=== PATIENT | female | born 1970 | race Caucasian/White ===

== ENCOUNTER 2017-06-13 09:44 | Observation (INO) | payer SELFPAY ==
[2017-06-13] MEDS ORDERED: NORMAL SALINE 1000 ML 1,000 ML IV PRN ×2 (09:56→13:56)
[2017-06-13] MEDS ORDERED: ONDANSETRON HCL INJ/PF 4 MG/2 ML SDV IV ONE (09:57)
[2017-06-13] MEDS ORDERED: MORPHINE SULFATE 10 MG/ML INJ IV ONE (09:57)
--- NOTE | 2017-06-13 09:58 | ER Document Report ---
ED Medical Screen (RME) - General Chief Complaint: Abdominal Pain Stated Complaint: ABDOMINAL PAIN Time Seen by Provider: 06/13/17 09:50 Notes: Patient presents with diffuse abdominal pain. She states she is able to eat and does not have nausea or vomiting. No problems with bowel movement. No problems with urination. She states the pain started yesterday has been increasing. She states it does go to the center of her back. TRAVEL OUTSIDE OF THE [place] IN LAST 30 DAYS: No - Related Data Allergies/Adverse Reactions: acetaminophen [From Percocet] Allergy (Severe, Verified 06/13/17 09:48) Rash on legs codeine [Codeine] Allergy (Severe, Verified 06/13/17 09:48) Over sedation, drooling oxycodone HCl [From Percocet] Allergy (Severe, Verified 06/13/17 09:48) Rash on legs Past Medical History - Past Medical History Cardiac Medical History: Denies: Hx Coronary Artery Disease, Hx Heart Attack, Hx Hypertension Pulmonary Medical History: Denies: Hx Asthma, Hx Bronchitis, Hx COPD, Hx Pneumonia Neurological Medical History: Denies: Hx Cerebrovascular Accident, Hx Seizures Renal/ Medical History: Denies: Hx Peritoneal Dialysis Musculoskeltal Medical History: Denies Hx Arthritis Psychiatric Medical History: Reports: Hx Depression - Immunizations Hx Diphtheria, Pertussis, Tetanus Vaccination: Yes - ? Tetanus only Physical Exam - Vital signs Vitals: Temp Pulse Resp BP Pulse Ox 98.7 F 78 20 124/83 99 06/13/17 09:48 06/13/17 09:48 06/13/17 09:48 06/13/17 09:48 06/13/17 09:48 Course - Vital Signs Vital signs: Temp Pulse Resp BP Pulse Ox 98.7 F 78 20 124/83 99 06/13/17 09:48 06/13/17 09:48 06/13/17 09:48 06/13/17 09:48 06/13/17 09:48
[2017-06-13 10:40] LABS: ABSOLUTE BASOPHILS # (AUTO) 0.1 10^3/uL (0.0-0.2); ABSOLUTE LYMPHOCYTES (AUTO) 1.6 10^3/uL (0.5-4.7); ABSOLUTE MONOCYTES (AUTO) 0.7 10^3/uL (0.1-1.4); ABSOLUTE NEUT (AUTO) 11.4 10^3/uL (1.7-8.2); BASOPHILS % (AUTO) 0.5 % (0-2); EOSINOPHILS % (AUTO) 0.1 % (0-6); HEMATOCRIT 41.2 % (36.0-47.0); HEMOGLOBIN 14.5 g/dL (12.0-15.5); HGB HCT DIFFERENCE 2.3; LYMPHOCYTES % (AUTO) 11.4 % (13-45); MEAN CORPUSCULAR HEMOGLOBIN 31.8 pg (27.0-33.4); MEAN CORPUSCULAR HGB CONC 35.1 g/dL (32.0-36.0); MEAN CORPUSCULAR VOLUME 91 fl (80-97); MONOCYTES % (AUTO) 5.4 % (3-13); RED BLOOD COUNT 4.54 10^6/uL (3.72-5.28); RED CELL DISTRIBUTION WIDTH 12.1 % (11.5-14.0); SEGMENTED NEUTROPHILS % (AUTO) 82.6 % (42-78); WHITE BLOOD COUNT 13.8 10^3/uL (4.0-10.5)
[2017-06-13 10:54] LABS: ALANINE AMINOTRANSFERASE 24 U/L (9-52); ALBUMIN 4.7 g/dL (3.5-5.0); ALKALINE PHOSPHATASE 79 U/L (38-126); ANION GAP 12 (5-19); ASPARTATE AMINO TRANSFERASE 15 U/L (14-36); BILIRUBIN,DIRECT 0.5 mg/dL (0.0-0.4); BLOOD UREA NITROGEN 5 mg/dL (7-20); CALCIUM 10.4 mg/dL (8.4-10.2); CARBON DIOXIDE 26 mmol/L (22-30); CHLORIDE 102 mmol/L (98-107); CREATININE RESULT 0.71 mg/dL (0.52-1.25); GLUCOSE 95 mg/dL (75-110); LIPASE 30.1 U/L (23-300); POTASSIUM 4.1 mmol/L (3.6-5.0); SODIUM 140.2 mmol/L (137-145); TOTAL PROTEIN 8.6 g/dL (6.3-8.2)
[2017-06-13 11:07] LABS: APPEARANCE,URINE CLEAR; BILIRUBIN,URINE NEGATIVE (NEGATIVE); GLUCOSE, URINE NEGATIVE (NEGATIVE); KETONES,URINE NEGATIVE (NEGATIVE); LEUKOCYTE ESTERASE,URINE NEGATIVE (NEGATIVE); NITRITE,URINE NEGATIVE (NEGATIVE); PROTEIN,URINE NEGATIVE (NEGATIVE); URINE SPECIFIC GRAVITY 1.003; UROBILINOGEN,URINE NEGATIVE mg/dL (<2.0)
--- NOTE | 2017-06-13 11:51 | ER Document Report ---
ED GI/ - General Chief Complaint: Abdominal Pain Stated Complaint: ABDOMINAL PAIN Time Seen by Provider: 06/13/17 09:50 Mode of Arrival: Ambulatory Information source: Patient Notes: Patient complains of abdominal pain that started yesterday. Patient states that pain was just generalized abdomen. Patient states she was given pain medication in triage that has greatly helped her symptoms. Patient denies any nausea, vomiting or diarrhea. Patient denies any vaginal bleeding or discharge. Patient denies any urinary symptoms. Patient does report a decreased appetite. No fever or cough. TRAVEL OUTSIDE OF THE [place] IN LAST 30 DAYS: No - HPI Patient complains to provider of: Abdominal pain. No: Diarrhea, Vomiting Onset: Yesterday Timing/Duration: Gradual Quality of pain: Sharp Severity at maximum: Moderate Pain Level: 1 Context: denies: Location: Other - Generalized abdomen Vaginal bleeding (Compared to normal period): None Sexual history: Active Associated symptoms: Loss of appetite. denies: Constipation, Diarrhea, Dysuria , Fever, Nausea, Urinary hesitancy, Urinary frequency, Urinary retention, Urinary urgency, Vaginal discharge, Vomiting Exacerbated by: Movement Relieved by: Denies Similar symptoms previously: No Recently seen / treated by doctor: No - Related Data Allergies/Adverse Reactions: acetaminophen [From Percocet] Allergy (Severe, Verified 06/13/17 09:48) Rash on legs codeine [Codeine] Allergy (Severe, Verified 06/13/17 09:48) Over sedation, drooling oxycodone HCl [From Percocet] Allergy (Severe, Verified 06/13/17 09:48) Rash on legs Home Medications: Current Home Medications No Home Medications 06/13/17 [History] Past Medical History - General Information source: Patient - Social History Smoking Status: Never Smoker Chew tobacco use (# tins/day): No Frequency of alcohol use: None Drug Abuse: None Lives with: Family Family History: Reviewed & Not Pertinent Patient has suicidal ideation: No Patient has homicidal ideation: No - Past Medical History Cardiac Medical History: Denies: Hx Coronary Artery Disease, Hx Heart Attack, Hx Hypertension Pulmonary Medical History: Denies: Hx Asthma, Hx Bronchitis, Hx COPD, Hx Pneumonia Neurological Medical History: Denies: Hx Cerebrovascular Accident, Hx Seizures Renal/ Medical History: Denies: Hx Peritoneal Dialysis Musculoskeltal Medical History: Denies Hx Arthritis Psychiatric Medical History: Reports: Hx Depression Past Surgical History: Reports: Hx Hysterectomy - Immunizations Hx Diphtheria, Pertussis, Tetanus Vaccination: Yes - ? Tetanus only Review of Systems - Review of Systems Constitutional: No symptoms reported. denies: Fever, Recent illness EENT: No symptoms reported Cardiovascular: No symptoms reported. denies: Chest pain Respiratory: No symptoms reported. denies: Cough, Short of breath Gastrointestinal: Abdominal pain, Poor appetite. denies: Diarrhea, Nausea, Vomiting, Constipation Genitourinary: No symptoms reported. denies: Dysuria, Frequency, Flank pain Female Genitourinary: No symptoms reported. denies: Vaginal discharge, Vaginal bleeding Musculoskeletal: No symptoms reported. denies: Back pain Skin: No symptoms reported Hematologic/Lymphatic: No symptoms reported Neurological/Psychological: No symptoms reported Physical Exam - Vital signs Vitals: Temp Pulse Resp BP Pulse Ox 98.7 F 78 20 124/83 99 06/13/17 09:47 06/13/17 09:47 06/13/17 09:47 06/13/17 09:47 06/13/17 09:47 - General General appearance: Appears well, Alert In distress: None - HEENT Head: Normocephalic, Atraumatic Eyes: Normal Nasal: Normal Mouth/Lips: Normal Mucous membranes: Normal Neck: Normal, Supple - Respiratory Respiratory status: No respiratory distress Chest status: Nontender Breath sounds: Normal. No: Rales, Rhonchi, Stridor, Wheezing Chest palpation: Normal - Cardiovascular Rhythm: Regular Heart sounds: S1 appreciated, S2 appreciated Murmur: No - Abdominal Inspection: Obese Distension: No distension Bowel sounds: Normal Tenderness: Tender - RLQ, suprapubic Organomegaly: No organomegaly - Back Back: Normal, Nontender. No: CVA tenderness, Vertebra tenderness - Extremities General upper extremity: Normal inspection, Normal ROM General lower extremity: Normal inspection, Normal ROM - Neurological Neuro grossly intact: Yes Cognition: Normal Heidi Coma Scale Eye Opening: Spontaneous Heidi Coma Scale Verbal: Oriented Heidi Coma Scale Motor: Obeys Commands Heidi Coma Scale Total: 15 - Psychological Associated symptoms: Normal affect, Normal mood - Skin Skin Temperature: Warm Skin Moisture: Dry Skin Color: Normal Course - Re-evaluation Re-evalutation: 06/13/17 11:[address] call [address] surgeon [address] Serna, message left with nurse for return call. Discussed patient's presentation and whether or not surgeon would like to come evaluate patient or if he would want imaging done. 06/13/17 11:54 Nurse called back stating that surgeon prefers that patient have some CT imaging prior to his evaluation. 06/13/17 13:[address] Serna advising him of CT findings of acute appendicitis. Recommend starting patient on cefoxitin and having her admitted to the floor and he will evaluate as soon as he is able. - Vital Signs Vital signs: Temp Pulse Resp BP Pulse Ox 98.2 F 49 L 17 102/74 96 06/13/17 16:20 06/13/17 16:20 06/13/17 16:20 06/13/17 16:20 06/13/17 16:20 - Laboratory Result Diagrams: 06/13/17 10:20 06/13/17 10:20 Laboratory results interpreted by me: 06/13/17 06/13/17 10:20 10:20 WBC 13.8 H Seg Neutrophils % 82.6 H Lymphocytes % 11.4 L Absolute Neutrophils 11.4 H BUN 5 L Calcium 10.4 H Total Bilirubin 2.0 H Direct Bilirubin 0.5 H Total Protein 8.6 H 06/13/17 13:54 Labs- Entire Visit 06/13/17 06/13/17 06/13/17 10:20 10:20 10:20 WBC 13.8 H RBC 4.54 Hgb 14.5 Hct 41.2 MCV 91 MCH 31.8 MCHC 35.1 RDW 12.1 Plt Count 209 Seg Neutrophils % 82.6 H Lymphocytes % 11.4 L Monocytes % 5.4 Eosinophils % 0.1 Basophils % 0.5 Absolute Neutrophils 11.4 H Absolute Lymphocytes 1.6 Absolute Monocytes 0.7 Absolute Eosinophils 0.0 Absolute Basophils 0.1 Sodium 140.2 Potassium 4.1 Chloride 102 Carbon Dioxide 26 Anion Gap 12 BUN 5 L Creatinine 0.71 Est GFR ( Amer) > 60 Est GFR (Non-Af Amer) > 60 Glucose 95 Calcium 10.4 H Total Bilirubin 2.0 H Direct Bilirubin 0.5 H Indirect Bilirubin Not Reportable Neonat Total Bilirubin Not Reportable AST 15 ALT 24 Alkaline Phosphatase 79 Total Protein 8.6 H Albumin 4.7 Lipase 30.1 Urine Color STRAW Urine Appearance CLEAR Urine pH 7.0 Ur Specific Gully 1.003 Urine Protein NEGATIVE Urine Glucose (UA) NEGATIVE Urine Ketones NEGATIVE Urine Blood NEGATIVE Urine Nitrite NEGATIVE Urine Bilirubin NEGATIVE Urine Urobilinogen NEGATIVE Ur Leukocyte Esterase NEGATIVE Urine WBC (Auto) 0 Squamous Epi Cells Auto 1 Urine Ascorbic Acid NEGATIVE Urine HCG, Qual NEGATIVE - Diagnostic Test Radiology reviewed: Reports reviewed Discharge - Discharge Clinical Impression: Abdominal pain Qualifiers: Abdominal location: right lower quadrant Qualified Code(s): R10.31 - Right lower quadrant pain Appendicitis Qualifiers: Appendicitis type: acute appendicitis Acute appendicitis type: unspecified acute appendicitis type Qualified Code(s): K35.80 - Unspecified acute appendicitis Leukocytosis Qualifiers: Leukocytosis type: unspecified Qualified Code(s): D72.829 - Elevated white blood cell count, unspecified Condition: Stable Disposition: ADMITTED INPATIENT Admitting Provider: Surgicalist Unit Admitted: Medical Floor
--- NOTE | 2017-06-13 13:00 | RADIOLOGY REPORT (SQ) ---
EXAM DESCRIPTION: CT ABD/PELVIS WITH IV ONLY COMPLETED DATE/TIME: 06/13/2017 12:27 pm REASON FOR STUDY: suprapubic, RLQ pain COMPARISON: None. TECHNIQUE: CT scan of the abdomen and pelvis performed using helical scanning technique with dynamic intravenous contrast injection. No oral contrast. Images reviewed with lung, soft tissue, and bone windows. Reconstructed coronal and sagittal MPR images reviewed. Delayed images for evaluation of the urinary system also acquired. All images stored on PACS. All CT scanners at this facility use dose modulation, iterative reconstruction, and/or weight based d osing when appropriate to reduce radiation dose to as low as reasonably achievable (ALARA). [facility]: Dose Right [facility]: CareDose [facility]: Dose Right [facility]: Teradose 4D [facility]: Paradine CONTRAST TYPE AND DOSE: contrast/concentration: Isovue 370.00 mg/ml; Total Contrast Delivered: 100.0 ml; Total Saline Delivered: 70.0 ml RENAL FUNCTION: BUN 5 creatinine 0.71. RADIATION DOSE: Up-to-date CT equipment and radiation dose reduction techniques were employed. CTDIv ol: 11.6 - 15.3 mGy. DLP: 1533 mGy-cm.. LIMITATIONS: None. FINDINGS: LOWER CHEST: No significant findings. No nodules or infiltrates. LIVER: Normal size. No masses. No dilated ducts. SPLEEN: Normal size. No focal lesions. PANCREAS: No masses. No significant calcifications. No adjacent inflammation or peripancreatic fluid collections. Pancreatic duct not dilated. GALLBLADDER: No identified stones by CT criteria. No inflammatory changes to suggest cholecystitis. ADRENAL GLANDS: No significant masses or asymmetry. RIGHT KIDNEY AND URETER: No solid masses. No significant calcifications. No hydronephrosis or hyd roureter. LEFT KIDNEY AND URETER: No solid masses. No significant calcifications. No hydronephrosis or hydr oureter. AORTA AND VESSELS: No aneurysm. No dissection. Renal arteries, SMA, celiac without stenosis. RETROPERITONEUM: No retroperitoneal adenopathy, hemorrhage or masses. BOWEL AND PERITONEAL CAVITY: No masses or inflammatory changes. No free fluid or peritoneal masses. APPENDIX: Distended. Inflammatory changes in the periappendiceal tissues. No fluid collections or e xtraluminal gas. PELVIS: No mass. No free fluid. Normal bladder. ABDOMINAL WALL: No masses. No hernias. BONES: No significant or acute findings. OTHER: No other significant finding. IMPRESSION: 1. EARLY ACUTE APPENDICITIS. NO ABSCESS OR PERFORATION AT THIS TIME. 2. NO OTHER SIGNIFICANT OR ACUTE FINDING IN THE ABDOMEN OR PELVIS ON CT SCAN WITH IV CONTRAST. TECHNICAL DOCUMENTATION: JOB ID: [id number] Quality ID # [id number]: Final reports with documentation of one or more dose reduction techniques (e.g., Au tomated exposure control, adjustment of the mA and/or kV according to patient size, use of iterative reconstruction technique) 2010 [email or web address]- All Rights Reserved
[2017-06-13] MEDS ORDERED: CEFOXITIN 1 GM/D5W RTU 1 GM/50 ML RTUPB IV ONE (13:53)
--- NOTE | 2017-06-13 17:44 | PDOC H&P ---
History of Present Illness Admission Date/PCP: 06/13/17 14:07 Patient complains of: Abdominal pain History of Present Illness: TISHA GARCIA is a 47 year old female who presents to [facility] [place] [facility] with acute onset of abdominal pain starting yesterday. With progressive worsening prompted ER visit. ER workup revealed leukocytosis and CT findings suggestive of acute appendicitis. Currently without complaints of fever, chest pain, shortness of breath, headache, nausea, vomiting, diarrhea, dizziness or LOC. Past Medical History Cardiac Medical History: Denies: Coronary Artery Disease, Myocardial Infarction, Hypertension Pulmonary Medical History: Denies: Asthma, Bronchitis, Chronic Obstructive Pulmonary Disease (COPD), Pneumonia Neurological Medical History: Denies: Seizures Musculoskeltal Medical History: Denies: Arthritis Psychiatric Medical History: Reports: Depression Hematology: Denies: Anemia Past Surgical History Past Surgical History: Reports: Hysterectomy, Other - Lumbar surgery, right elbow surgery Social History Smoking Status: Former Smoker Number of Years Smokin Last Time Smoked: 2015 Frequency of Alcohol Use: Rare Hx Recreational Drug Use: No Drugs: None Hx Prescription Drug Abuse: No Family History Family History: Reviewed & Not Pertinent Parental Family History Reviewed: Yes - DM Children Family History Reviewed: Yes Sibling(s) Family History Reviewed.: Yes Medication/Allergy Home Medications: No Home Medications 06/13/17 Allergies/Adverse Reactions: acetaminophen [From Percocet] Allergy (Severe, Verified 06/13/17 09:48) Rash on legs codeine [Codeine] Allergy (Severe, Verified 06/13/17 09:48) Over sedation, drooling oxycodone HCl [From Percocet] Allergy (Severe, Verified 06/13/17 09:48) Rash on legs Review of Systems Constitutional: PRESENT: weakness. ABSENT: fever(s), headache(s), night sweats Eyes: ABSENT: visual disturbances Ears: ABSENT: hearing changes Nose, Mouth, and Throat: PRESENT: headache(s) Cardiovascular: ABSENT: chest pain, dyspnea on exertion Respiratory: ABSENT: cough, dyspnea, hemoptysis Gastrointestinal: PRESENT: nausea. ABSENT: constipation, diarrhea, dysphagia, heartburn, vomiting Neurological: ABSENT: abnormal gait, abnormal speech, confusion, dizziness, focal weakness, syncope Physical Exam Vital Signs: Temp Pulse Resp BP Pulse Ox 98.2 F 49 L 17 102/74 96 06/13/17 16:20 06/13/17 16:20 06/13/17 16:20 06/13/17 16:20 06/13/17 16:20 General appearance: PRESENT: no acute distress Head exam: PRESENT: atraumatic, normocephalic Eye exam: PRESENT: conjunctiva pink Mouth exam: PRESENT: moist, neck supple Neck exam: ABSENT: lymphadenopathy, tenderness, thyromegaly, tracheal deviation Respiratory exam: PRESENT: clear to auscultation manda Cardiovascular exam: PRESENT: RRR Pulses: PRESENT: normal dorsalis pedis pul GI/Abdominal exam: PRESENT: soft, tenderness - RLQ Extremities exam: ABSENT: calf tenderness, tenderness Neurological exam: PRESENT: alert, awake, oriented to person, oriented to place , oriented to time, oriented to situation, CN II-XII grossly intact. ABSENT: motor sensory deficit Results Impressions: Abdomen/Pelvis CT 06/13/17 11:54 IMPRESSION: 1. EARLY ACUTE APPENDICITIS. NO ABSCESS OR PERFORATION AT THIS TIME. 2. NO OTHER SIGNIFICANT OR ACUTE FINDING IN THE ABDOMEN OR PELVIS ON CT SCAN WITH IV CONTRAST. Status: Imported from PACS Assessment & Plan - Diagnosis (1) Appendicitis Qualifiers: Appendicitis type: acute appendicitis Acute appendicitis type: unspecified acute appendicitis type Qualified Code(s): K35.80 - Unspecified acute appendicitis Is this a current diagnosis for this admission?: Yes Plan: CLIQ diet, NPO after midnight IV antibiotics Pain control Pulmonary toilet OR in am for lap appy DVT/GI prophylaxis - Time Time Spent: 30 to 50 Minutes
[2017-06-13] MEDS ORDERED: DEXTROSE 50%-WATER 25 GM/50 ML DISP.SYRIN IV PRN ×2 (17:46)
[2017-06-13] MEDS ORDERED: DEXTROSE 40% GEL 15 GM TUBE PO PRN ×2 (17:46)
[2017-06-13] MEDS ORDERED: GLUCAGON,HUMAN RECOMB 1 MG INJ SUBCUT PRN (17:46)
[2017-06-13] MEDS ORDERED: MORPHINE SULFATE 10 MG/ML INJ IV PRN (17:46)
[2017-06-13] MEDS ORDERED: ONDANSETRON HCL INJ/PF 4 MG/2 ML SDV IV PRN (17:46)
[2017-06-13] MEDS ORDERED: ACETAMINOPHEN 325 MG TABLET PO PRN (17:46)
[2017-06-13] MEDS: CEFOXITIN 1 GM/D5W RTU 1 GM/50 ML RTUPB IV SCH (21:55)
[2017-06-13] MEDS: PANTOPRAZOLE SODIUM 40 MG VIAL IV SCH (21:55)
[2017-06-14 04:36] LABS: ABSOLUTE LYMPHOCYTES (AUTO) 2.4 10^3/uL (0.5-4.7); ABSOLUTE MONOCYTES (AUTO) 0.5 10^3/uL (0.1-1.4); ABSOLUTE NEUT (AUTO) 5.9 10^3/uL (1.7-8.2); BASOPHILS % (AUTO) 0.4 % (0-2); EOSINOPHILS % (AUTO) 0.5 % (0-6); HEMATOCRIT 37.6 % (36.0-47.0); HEMOGLOBIN 13.1 g/dL (12.0-15.5); HGB HCT DIFFERENCE 1.7; LYMPHOCYTES % (AUTO) 26.9 % (13-45); MEAN CORPUSCULAR HEMOGLOBIN 31.6 pg (27.0-33.4); MEAN CORPUSCULAR HGB CONC 34.7 g/dL (32.0-36.0); MEAN CORPUSCULAR VOLUME 91 fl (80-97); MONOCYTES % (AUTO) 5.2 % (3-13); RED BLOOD COUNT 4.14 10^6/uL (3.72-5.28); RED CELL DISTRIBUTION WIDTH 12.3 % (11.5-14.0); WHITE BLOOD COUNT 8.8 10^3/uL (4.0-10.5)
[2017-06-14 04:55] LABS: ANION GAP 10 (5-19); BLOOD UREA NITROGEN 6 mg/dL (7-20); CARBON DIOXIDE 24 mmol/L (22-30); CHLORIDE 106 mmol/L (98-107); CREATININE RESULT 0.64 mg/dL (0.52-1.25); GLUCOSE 94 mg/dL (75-110); SODIUM 139.8 mmol/L (137-145)
[2017-06-14] MEDS ORDERED: RINGERS SOLUTION,LACTATED 1,000 ML IV PRN (05:00)
[2017-06-14] MEDS ORDERED: BUPIVACAINE HCL 0.25 % INJ/PF (2.5 MG/1 ML) 30 ML VIAL ONE (06:55)
[2017-06-14] MEDS ORDERED: LIDOCAINE 1%/EPINEPHRINE INJ 20 ML VIAL ONE (06:55)
[2017-06-14] MEDS ORDERED: MIDAZOLAM 2 MG/2 ML INJ ONE (07:15)
[2017-06-14] MEDS ORDERED: PROPOFOL INJ 200 MG/20 ML VIAL IV ONE (07:16)
[2017-06-14] MEDS ORDERED: ACETAMINOPHEN 100 ML IV ONE (07:16)
[2017-06-14] MEDS ORDERED: FENTANYL CITRATE INJ/PF 250 MCG/5 ML AMPULE ONE (07:16)
[2017-06-14] MEDS ORDERED: CEFOXITIN 1 GM/D5W RTU 1 GM/50 ML RTUPB IV ONE (07:32)
[2017-06-14] MEDS ORDERED: EPHEDRINE SULFATE INJ 50 MG/1 ML AMPULE ONE (07:54)
[2017-06-14] MEDS ORDERED: FENTANYL CITRATE INJ/PF 100 MCG/2 ML AMPUL IV PRN ×3 (07:57)
[2017-06-14] MEDS ORDERED: PROMETHAZINE HCL INJ 25 MG/1 ML VIAL IV PRN ×2 (07:57)
[2017-06-14] MEDS ORDERED: DIPHENHYDRAMINE HCL 50 MG/ML VIAL IV PRN (07:57)
[2017-06-14] MEDS ORDERED: MORPHINE SULFATE 10 MG/ML INJ IV PRN (07:57)
--- NOTE | 2017-06-14 08:47 | Operative Report ---
Operative Report DATE OF SURGERY: 06/14/17 Operative Report: Clinical indication: 47 year old female who presents to [facility] [place] [place] [facility] with acute onset of abdominal pain periumbilical to RLQ. ER workup revealed her to have leukocytosis and CT findings consistent with acute appendicitis. Consent was obtained from the patient explained competitions risks benefits with the procedure including but limited to bleeding infection need for operation to which she accepted. Procedure in detail: Patient is brought to the operative suite prior to anesthetic induction SCDs were placed and functional. After adequate anesthetic induction successful intubation she was sterilely prepped and draped in usual manner. Prior to any incision local was instilled. Local used was 1% lidocaine with epinephrine and quarter percent Marcaine plain mixed 50-50 of which 6 mils were used. Access to her abdomen was Via Doyle technique is a cutdown incision was infra umbilical. Dissection through the subcutaneous tissue to the fascia was done bluntly with visual station of the fascia was then retracted anteriorly and transfixed with stitch. Midline incision was made sharply. Confirmation of entry into the abdomen was done via both visual as well as palpable note. Doyle trocar was inserted pneumoperitoneum of 15 mmHg was established 5 mm 0 endoscope was placed within the abdomen noting no iatrogenic injury subsequent trochars were placed. 5 mm suprapubic and a 5 mm left lower quadrant all under direct visualization no bleeding noted. Patient was placed in steep Trendelenburg and airplane left. Instrumentation was placed into her abdomen to optimize visualization of the appendix which was readily apparent on the anterior surface of the colon. Appendix was retracted anteriorly window was created between the mesoappendix and the base of the appendix transection of both of these structures was accomplished with a WALTER stapler 45 mm blue load for the bowel white load for the mesoappendix. Inspection staple lines after transection notes no bleeding. Cursory inspection of the abdomen notes normal-appearing liver abdominal wall stomach pelvic structures that were visible. At this point trochars removed under direct visualization noting no bleeding pneumoperitoneum was insufflated and has an trocar was removed. Sites were then closed in sequence using a 3-0 Vicryl stitch in the dermis and approximation of the skin using 4-0 chromic in running some particular manner. Additional closure at this time trocar was a figure 8-0 Vicryl stitch in the fascia of the abdominal wall. Skin site dressings were with tincture benzoin Steri-Strips and op sites were 2 x 2's. Patient was awoke from anesthesia successfully extubated and transported back to recovery in stable condition. PREOPERATIVE DIAGNOSIS: Acute appendicitis POSTOPERATIVE DIAGNOSIS: Acute appendicitis OPERATION: Laparoscopic appendectomy SURGEON: NUPUR HERRERA ANESTHESIA: GA TISSUE REMOVED OR ALTERED: Appendix COMPLICATIONS: None ESTIMATED BLOOD LOSS: 5mls INTRAOPERATIVE FINDINGS: Thickened appendix
[2017-06-14] MEDS ORDERED: PROMETHAZINE HCL INJ 25 MG/1 ML VIAL ONE (09:04)
[2017-06-14] MEDS: CEFOXITIN 1 GM/D5W RTU 1 GM/50 ML RTUPB IV SCH (09:51)
[2017-06-14] MEDS: PANTOPRAZOLE SODIUM 40 MG VIAL IV SCH (09:52)
[2017-06-14] MEDS ORDERED: DOCUSATE SODIUM 100 MG CAPSULE PO SCH (10:00)
[2017-06-14] MEDS ORDERED: LIDOCAINE 2% INJ-PF (20 MG/ML) 10 ML AMPUL ONE (10:22)
[2017-06-14] MEDS ORDERED: NEOSTIGMINE METHYLSULFATE 10 MG/10 ML VIAL ONE (10:22)
[2017-06-14] MEDS ORDERED: ONDANSETRON HCL INJ/PF 4 MG/2 ML SDV ONE (10:22)
[2017-06-14] MEDS ORDERED: DEXAMETHASONE SOD PHOSPHATE INJ 4 MG/1 ML VIAL ONE (10:22)
[2017-06-14] MEDS ORDERED: GLYCOPYRROLATE INJ 0.4 MG/2 ML VIAL ONE (10:22)
[2017-06-14] MEDS ORDERED: SUCCINYLCHOLINE CHLORIDE INJ 200 MG/10 ML VIAL ONE (10:22)
--- NOTE | 2017-06-14 15:57 | PDOC DISCHARGE SUMMARY ---
General - Admit/Disc Date/PCP Admission Date/Primary Care Provider: 06/13/17 17:45 Discharge Date: 06/14/17 - Discharge Diagnosis (1) Appendicitis Is this a current diagnosis for this admission?: Yes Summary: Patient underwent appendectomy after ER workup revealed leukocytosis and CT findings c/w acute appendicitis. Pain controlled, tolerating a diet, ambulatory , urinating. - Additional Information Resuscitation Status: Full Code Discharge Diet: As Tolerated Discharge Activity: No Lifting Over 10 Pounds Home Medications: No Home Medications 06/13/17 History of Present Illness Patient complains of: Abdominal pain History of Present Illness: TISHA GARCIA is a 47 year old female who presents to [facility] [place] [facility] with acute onset of abdominal pain starting yesterday. With progressive worsening prompted ER visit. ER workup revealed leukocytosis and CT findings suggestive of acute appendicitis. Currently without complaints of fever, chest pain, shortness of breath, headache, nausea, vomiting, diarrhea, dizziness or LOC. Hospital Course Hospital Course: Postoperative course uneventful, tolerating a diet, pain controlled, urinating and ambulating. Physical Exam Vital Signs: Temp Pulse Resp BP Pulse Ox 97.7 F 81 20 111/67 99 06/14/17 14:10 06/14/17 14:10 06/14/17 14:10 06/14/17 14:10 06/14/17 14:10 Intake & Output 06/13/17 06/14/17 06/15/17 06:59 06:59 06:59 Intake Total 1048 2441 Output Total 205 Balance 1048 2236 Weight 85.6 kg General appearance: PRESENT: no acute distress, well-developed, well-nourished Head exam: PRESENT: atraumatic, normocephalic Mouth exam: PRESENT: moist, neck supple Neck exam: ABSENT: lymphadenopathy, tenderness, thyromegaly, tracheal deviation GI/Abdominal exam: PRESENT: guarding - focal, soft, tenderness - appropriate. ABSENT: distended, firm Extremities exam: PRESENT: full ROM. ABSENT: calf tenderness, clubbing, pedal edema Neurological exam: PRESENT: alert, awake, oriented to person, oriented to place , oriented to time, oriented to situation, CN II-XII grossly intact. ABSENT: motor sensory deficit Results Laboratory Results: 06/14/17 04:28 06/14/17 04:28 06/14/17 06/14/17 04:28 04:28 WBC 8.8 RBC 4.14 Hgb 13.1 Hct 37.6 MCV 91 MCH 31.6 MCHC 34.7 RDW 12.3 Plt Count 182 Seg Neutrophils % 67.0 Lymphocytes % 26.9 Monocytes % 5.2 Eosinophils % 0.5 Basophils % 0.4 Absolute Neutrophils 5.9 Absolute Lymphocytes 2.4 Absolute Monocytes 0.5 Absolute Eosinophils 0.0 Absolute Basophils 0.0 Sodium 139.8 Potassium 4.0 Chloride 106 Carbon Dioxide 24 Anion Gap 10 BUN 6 L Creatinine 0.64 Est GFR ( Amer) > 60 Est GFR (Non-Af Amer) > 60 Glucose 94 Calcium 9.0 Impressions: Abdomen/Pelvis CT 06/13/17 11:54 IMPRESSION: 1. EARLY ACUTE APPENDICITIS. NO ABSCESS OR PERFORATION AT THIS TIME. 2. NO OTHER SIGNIFICANT OR ACUTE FINDING IN THE ABDOMEN OR PELVIS ON CT SCAN WITH IV CONTRAST. Qualifiers PATEINT BEING DISCHARGED WITH ANY OF THE FOLLOWING DIAGNOSIS?: No Plan Discharge Plan: Home Time Spent: Less than 30 Minutes
[2017-06-14 17:34] VITALS: BP 95/56
== END 2017-06-14 18:56 | disposition home or self-care (01) ==
LOC: ER 09:44 → UNDOADMIN 14:07 → EH 14:07 → 4W 16:18 → INTOOBSV 17:45 → 4W 17:45
PROVIDERS: ATTEND Surgery
PROC: 0DTJ4ZZ Resection of Appendix, Percutaneous Endoscopic Approach (ICD-10-PCS; principal; 2017-06-14 07:30)
DX: K35.80 Unspecified acute appendicitis (principal); R51 Headache; Z90.710 Acquired absence of both cervix and uterus; Z87.891 Personal history of nicotine dependence
CPT/HCPCS: 44970; 99285; 96361; 96374; 96375; 36415 ×2; 83690; 85025 ×2; 81025; 80048; 80053; 81001; 88304 ×2; 74177; G0378 ×2; J2250; J1100; J3490 ×3; J3010; J0694 ×2; J2270 ×2; S0164 ×2; J2550; J0330; J2405 ×2; J7030; J7120; J2704; J0131; 840

== ENCOUNTER 2018-10-24 11:39 | Emergency (ER) | payer SELFPAY ==
[2018-10-24] MEDS ORDERED: FENTANYL CITRATE INJ/PF 100 MCG/2 ML AMPUL IV ONE (12:03)
--- NOTE | 2018-10-24 12:09 | ER Document Report ---
ED Medical Screen (RME) - General Chief Complaint: Pain All Over Stated Complaint: PELVIC PAIN, BACK PAIN Time Seen by Provider: 10/24/18 11:56 Mode of Arrival: Ambulatory Information source: Patient Notes: 48-year-old female presents the emergency department with complaints of suprapubic pressure/cramping, dysuria, fever, chills for the last day. Patient denies abnormal vaginal discharge, hematuria, vaginal bleeding. Went to urgent care and urine was normal. Patient states that she has had an appendectomy and hysterectomy in the past. I have greeted and performed a rapid initial assessment of this patient. A comprehensive ED assessment and evaluation of the patient, analysis of test results and completion of the medical decision making process will be conducted by additional ED providers. PHYSICAL EXAMINATION: GENERAL: Well-appearing, well-nourished and in no acute distress. HEAD: Atraumatic, normocephalic. EYES: Pupils equal round extraocular movements intact, conjunctiva are normal. ENT: Nares patent NECK: Normal range of motion LUNGS: No respiratory distress Musculoskeletal: Normal range of motion NEUROLOGICAL: Normal speech, normal gait. PSYCH: Normal mood, normal affect. SKIN: Warm, Dry, normal turgor, no rashes or lesions noted. TRAVEL OUTSIDE OF THE [place] IN LAST 30 DAYS: No - Related Data Allergies/Adverse Reactions: acetaminophen [From Percocet] Allergy (Severe, Verified 10/24/18 11:43) Rash on legs codeine [Codeine] Allergy (Severe, Verified 10/24/18 11:43) Over sedation, drooling oxycodone HCl [From Percocet] Allergy (Severe, Verified 10/24/18 11:43) Rash on legs Past Medical History - Social History Chew tobacco use (# tins/day): No Frequency of alcohol use: None Drug Abuse: None - Past Medical History Cardiac Medical History: Denies: Hx Coronary Artery Disease, Hx Heart Attack, Hx Hypertension Pulmonary Medical History: Denies: Hx Asthma, Hx Bronchitis, Hx COPD, Hx Pneumonia Neurological Medical History: Denies: Hx Cerebrovascular Accident, Hx Seizures Renal/ Medical History: Denies: Hx Peritoneal Dialysis Musculoskeltal Medical History: Denies Hx Arthritis Psychiatric Medical History: Reports: Hx Depression - anxiety Past Surgical History: Reports: Hx Appendectomy, Hx Hysterectomy, Hx Orthopedic Surgery - back, elbow, Hx Tubal Ligation, Other - Lumbar surgery, right elbow surgery - Immunizations Hx Diphtheria, Pertussis, Tetanus Vaccination: Yes - ? Tetanus only History of Influenza Vaccine for 06/2017 - 11/2017 Season: No Physical Exam - Vital signs Vitals: Temp Pulse Resp BP Pulse Ox 99.1 F 83 16 115/75 98 10/24/18 11:49 10/24/18 11:49 10/24/18 11:49 10/24/18 11:49 10/24/18 11:49 Course - Vital Signs Vital signs: Temp Pulse Resp BP Pulse Ox 99.1 F 83 16 115/75 98 10/24/18 11:49 10/24/18 11:49 10/24/18 11:49 10/24/18 11:49 10/24/18 11:49
[2018-10-24 12:46] LABS: ABSOLUTE LYMPHOCYTES (AUTO) 1.6 10^3/uL (0.5-4.7); ABSOLUTE MONOCYTES (AUTO) 0.7 10^3/uL (0.1-1.4); ABSOLUTE NEUT (AUTO) 8.1 10^3/uL (1.7-8.2); BASOPHILS % (AUTO) 0.2 % (0-2); EOSINOPHILS % (AUTO) 0.3 % (0-6); HEMATOCRIT 39.5 % (36.0-47.0); HEMOGLOBIN 13.7 g/dL (12.0-15.5); LYMPHOCYTES % (AUTO) 15.3 % (13-45); MEAN CORPUSCULAR HEMOGLOBIN 31.3 pg (27.0-33.4); MEAN CORPUSCULAR HGB CONC 34.5 g/dL (32.0-36.0); MEAN CORPUSCULAR VOLUME 91 fl (80-97); PLATELET COUNT 223 10^3/uL (150-450); RED BLOOD COUNT 4.37 10^6/uL (3.72-5.28); RED CELL DISTRIBUTION WIDTH 12.3 % (11.5-14.0); SEGMENTED NEUTROPHILS % (AUTO) 77.2 % (42-78); TOTAL CELLS COUNTED % (AUTO) 100 %; WHITE BLOOD COUNT 10.5 10^3/uL (4.0-10.5)
[2018-10-24 12:49] LABS: APPEARANCE,URINE CLEAR; BILIRUBIN,URINE NEGATIVE (NEGATIVE); COLOR,URINE YELLOW; GLUCOSE, URINE NEGATIVE (NEGATIVE); KETONES,URINE NEGATIVE (NEGATIVE); LEUKOCYTE ESTERASE,URINE NEGATIVE (NEGATIVE); NITRITE,URINE NEGATIVE (NEGATIVE); PROTEIN,URINE NEGATIVE (NEGATIVE); URINE SPECIFIC GRAVITY 1.011; UROBILINOGEN,URINE NEGATIVE mg/dL (<2.0)
[2018-10-24 13:05] LABS: ALANINE AMINOTRANSFERASE 23 U/L (9-52); ALBUMIN 4.8 g/dL (3.5-5.0); ALKALINE PHOSPHATASE 75 U/L (38-126); ANION GAP 11 (5-19); ASPARTATE AMINO TRANSFERASE 18 U/L (14-36); BILIRUBIN,DIRECT 0.2 mg/dL (0.0-0.4); BILIRUBIN,TOTAL 1.5 mg/dL (0.2-1.3); BLOOD UREA NITROGEN 14 mg/dL (7-20); CALCIUM 9.8 mg/dL (8.4-10.2); CARBON DIOXIDE 29 mmol/L (22-30); CHLORIDE 99 mmol/L (98-107); GLUCOSE 87 mg/dL (75-110); POTASSIUM 4.3 mmol/L (3.6-5.0); SODIUM 139.4 mmol/L (137-145); TOTAL PROTEIN 8.2 g/dL (6.3-8.2)
--- NOTE | 2018-10-24 13:31 | RADIOLOGY REPORT (SQ) ---
EXAM DESCRIPTION: CT ABD/PELVIS NO ORAL OR IV COMPLETED DATE/TIME: 10/24/2018 1:06 pm REASON FOR STUDY: pelvic pain and numbness COMPARISON: CT abdomen pelvis 06/13/2017 TECHNIQUE: CT scan of the abdomen and pelvis performed without intravenous or oral contrast. Images reviewed with lung, soft tissue, and bone windows. Reconstructed coronal and sagittal MPR images revi ewed. All images stored on PACS. All CT scanners at this facility use dose modulation, iterative reconstruction, and/or weight based d osing when appropriate to reduce radiation dose to as low as reasonably achievable (ALARA). [facility]: Dose Right [facility]: CareDose [facility]: Dose Right [facility]: Teradose 4D [facility]: Smart [employer] RADIATION DOSE: CT Rad equipment meets quality standard of care and radiation dose reduction techniq ues were employed. CTDIvol: 10.9 mGy. DLP: 640 mGy-cm.mGy. LIMITATIONS: None. FINDINGS: Along the proximal sigmoid colon, a 7 cm long segment of wall thickening, luminal narrowin g and surrounding inflammatory changes present, from diverticulitis. This is best shown on axial keshia ges 84 and coronal images 33 through 47. No pericolic abscess. No free pelvic fluid. No bowel obst ruction. Remainder of the uncontrasted images of the gastrointestinal tract are otherwise unremarkable aside f rom post appendectomy change. LOWER CHEST: No significant findings. No nodules or infiltrates. NON-CONTRASTED LIVER, SPLEEN, ADRENALS: Evaluation limited by lack of IV contrast. No identified sign ificant masses. Benign 2 cm left lobe liver cyst at the falciform ligament PANCREAS: No masses. No peripancreatic inflammatory changes. GALLBLADDER: No identified stones by CT criteria. No inflammatory changes to suggest cholecystitis. RIGHT KIDNEY AND URETER: No suspicious masses. Assessment limited by lack of IV contrast. No signif icant calcifications. No hydronephrosis or hydroureter. LEFT KIDNEY AND URETER: No suspicious masses. Assessment limited by lack of IV contrast. No signifi cant calcifications. No hydronephrosis or hydroureter. AORTA AND RETROPERITONEUM: No aneurysm. No retroperitoneal masses or adenopathy. BOWEL AND PERITONEAL CAVITY: As above APPENDIX: Surgically absent PELVIS, BLADDER, AND ABDOMINAL WALL:Post hysterectomy. No free pelvic fluid or pelvic adenopathy. B ladder unremarkable. Tiny fat containing supraumbilical midline ventral hernia containing fat on sag ittal image 63 BONES: Advanced degenerative disc changes at L4-5 OTHER: No other significant finding. IMPRESSION: Proximal sigmoid colon diverticulitis without abscess COMMENT: Quality ID # [id number]: Final reports with documentation of one or more dose reduction techniques (e.g., Automated exposure control, adjustment of the mA and/or kV according to patient size, use of iterative reconstruction technique) TECHNICAL DOCUMENTATION: JOB ID: [id number] [employer]- All Rights Reserved Reading location - IP/workstation name: [email or web address]
--- NOTE | 2018-10-24 13:44 | ER Document Report ---
ED General Pain - General Chief Complaint: Pain All Over Stated Complaint: PELVIC PAIN, BACK PAIN Time Seen by Provider: 10/24/18 11:56 Mode of Arrival: Ambulatory Notes: 48-year-old female presents the emergency department with complaints of suprapubic pressure/cramping, dysuria, fever, chills for the last day. Patient denies abnormal vaginal discharge, hematuria, vaginal bleeding. Went to urgent care and urine was normal. Patient states that she has had an appendectomy and hysterectomy in the past. The patient has a history of chronic back pain and had surgery in 2010. She complains of increasing numbness in her lower extremities. States at times her legs feel weak. She also in the same breath complains of pelvic pain. She has some lower abdominal cramping and dysuria. The patient is supposed to be seeing pain management but cannot afford it. She denies any headache or blurred vision. Complains of severe pain in her lower back which is been chronic but stating the pain is worse and she has been having worse numbness and tingling in her lower extremities. TRAVEL OUTSIDE OF THE [place] IN LAST 30 DAYS: No - Related Data Allergies/Adverse Reactions: acetaminophen [From Percocet] Allergy (Severe, Verified 10/24/18 11:43) Rash on legs codeine [Codeine] Allergy (Severe, Verified 10/24/18 11:43) Over sedation, drooling oxycodone HCl [From Percocet] Allergy (Severe, Verified 10/24/18 11:43) Rash on legs Past Medical History - General Information source: Patient - Social History Smoking Status: Former Smoker Chew tobacco use (# tins/day): No Frequency of alcohol use: None Drug Abuse: None Family History: Reviewed & Not Pertinent Patient has suicidal ideation: No Patient has homicidal ideation: No - Past Medical History Cardiac Medical History: Denies: Hx Coronary Artery Disease, Hx Heart Attack, Hx Hypertension Pulmonary Medical History: Denies: Hx Asthma, Hx Bronchitis, Hx COPD, Hx Pneumonia Neurological Medical History: Denies: Hx Cerebrovascular Accident, Hx Seizures Renal/ Medical History: Denies: Hx Peritoneal Dialysis Musculoskeletal Medical History: Denies Hx Arthritis Psychiatric Medical History: Reports: Hx Depression - anxiety Past Surgical History: Reports: Hx Appendectomy, Hx Hysterectomy, Hx Orthopedic Surgery - back, elbow, Hx Tubal Ligation, Other - Lumbar surgery, right elbow surgery - Immunizations Hx Diphtheria, Pertussis, Tetanus Vaccination: Yes - ? Tetanus only Review of Systems - Review of Systems Gastrointestinal: Abdominal pain, Nausea, Constipation. denies: Diarrhea Genitourinary: Dysuria Musculoskeletal: Back pain -: Yes All other systems reviewed and negative Physical Exam - Vital signs Vitals: Temp Pulse Resp BP Pulse Ox 99.1 F 83 16 115/75 98 10/24/18 11:49 10/24/18 11:49 10/24/18 11:49 10/24/18 11:49 10/24/18 11:49 - Notes Notes: GENERAL_APPEARANCE: well_nourished, alert, cooperative, no_acute_distress, no_obvious_discomfort. VITALS: reviewed, see vital signs table. HEAD: no_swelling\tenderness on the head. EYES: PERRL, EOMI, conjunctiva_clear. NOSE: no_nasal_discharge. MOUTH: (-)decreased moisture. THROAT: no_tonsilar_inflammation, no_airway_obstruction. no_lymphadenopathy NECK: supple, no_neck_tenderness, (-)thyromegaly. BACK: L3-4-5 S1_back_tenderness. CHEST_WALL: no_chest_tenderness. LUNGS: no_wheezing, no_rales, no_rhonchi, (-)accessory muscle use, good air exchange bilateral. HEART: normal_rate, normal_rhythm, normal_S1, normal_S2, (-)S3, (-)S4, no_murmur, no_rub. ABDOMEN: normal_BS, soft, no_abd_tenderness, (-)guarding, (-)rebound, no_organomegaly, no_abd_masses. EXTREMITIES: good pulses in all_extremities, no_swelling\tenderness in the extremities, no_edema. SKIN: warm, dry, good_color, no_rash. MENTAL_STATUS: speech_clear, oriented_X_3, normal_affect, res ponds_appropriately to questions. NEURO: Neg Motor Deficits on exam, foot drop, CN 2-12 intact, DTR 2+ symmetric x 4, No cerbellar signs, patient complains of subjective numbness from the inguinal ligament all the way down to the toes. Does not seem to follow any specific dermatome. Course - Re-evaluation Re-evalutation: 10/24/18 13:43 48-year-old female presents with increasing low back pain pelvic pain cramping some dysuria. We will check a urine. Patient insists that her back pain is worse and she is had numbness and worsening numbness and tingling. We will get an MRI of the lumbar spine to assess to rule out cauda equina syndrome. 10/24/18 15:41 Patient's MRI shows multiple chronic changes but nothing suggestive of spinal cord compression or cauda equina syndrome. There is some effacement of the thecal sac but no compression. The patient CT of abdomen and pelvis does show diverticulitis. Due to the patient's chronic back pain and pain issues this seemed to create a confusing clinical picture where is the abdominal pain was not clearly differentiated. I do not believe the patient has cauda equina syndrome believe she has her chronic back pain. However she did not know how to interpret the new pain in her abdomen The patient was given a dose of Cipro IV here with Flagyl. She will be placed o n Cipro Flagyl [place] and Zofran for home for pain. There is no signs of any abscess or perforation. Patient will be has follow-up with her family doctor for further care she would like any GI consultation once her flare has resolved. - Vital Signs Vital signs: Temp Pulse Resp BP Pulse Ox 99.1 F 83 16 103/67 98 10/24/18 11:49 10/24/18 11:49 10/24/18 11:49 10/24/18 12:52 10/24/18 11:49 - Laboratory Result Diagrams: 10/24/18 12:19 10/24/18 12:19 Laboratory results interpreted by me: 10/24/18 12:19 Total Bilirubin 1.5 H - Diagnostic Test Radiology reviewed: Image reviewed, Reports reviewed Radiology results interpreted by me: 10/24/18 15:42 Abdomen/Pelvis CT 10/24/18 12:50 IMPRESSION: Proximal sigmoid colon diverticulitis without abscess Lumbar Spine MRI 10/24/18 12:50 IMPRESSION: Remote prior left micro laminectomy at L4-5 with a chronic calcified left paracentral disc protrusion flattening the thecal sac near the takeoff of the left proximal L5 nerve root in the lateral recess. Discharge - Discharge Clinical Impression: Acute exacerbation of chronic low back pain Diverticulitis large intestine Qualifiers: Diverticulitis bleeding: without bleeding Diverticulitis complication: without perforation or abscess Qualified Code(s): K57.32 - Diverticulitis of large intestine without perforation or abscess without bleeding Condition: Good Disposition: HOME, SELF-CARE Instructions: Diverticulitis ([facility]), Ciprofloxacin ([facility]), Low Residue Diet ([facility]) Additional Instructions: Please follow-up with your family doctor you will likely need gastroenterology referral once her diverticulitis flare resolves if you develop a fever of 101 or above or if you feel worse or are vomiting and cannot keep down her meds return to the ER please Prescriptions: Tramadol HCl [Ultram 50 mg Tablet] 50 mg PO Q6HP PRN #40 tablet PRN Reason: Ciprofloxacin HCl [Cipro 500 mg Tablet] 500 mg PO BID #20 tablet Metronidazole [Flagyl 500 mg Tablet] 500 mg PO Q8H #30 tablet Ondansetron [Zofran Odt 4 mg Tablet] 1 - 2 tab PO Q4H PRN #15 tab.rapdis PRN Reason: For Nausea/Vomiting
--- NOTE | 2018-10-24 13:56 | EKG REPORT ---
SEVERITY:- BORDERLINE ECG - SINUS RHYTHM BORDERLINE T ABNORMALITIES, INFERIOR LEADS : Confirmed by: Steve Santiago MD 24-Oct-2018 13:56:07
--- NOTE | 2018-10-24 14:08 | RADIOLOGY REPORT (SQ) ---
EXAM DESCRIPTION: MRI LUMBAR SPINE WITHOUT COMPLETED DATE/TIME: 10/24/2018 1:41 pm REASON FOR STUDY: leg numbness COMPARISON: CT abdomen pelvis 10/24/2018 TECHNIQUE: Sagittal and Axial imaging includes T1, T2, STIR and gradient echo sequences. Coronal T2/ HASTE imaging. LIMITATIONS: None. FINDINGS: VISUALIZED UPPER ABDOMEN: Limited evaluation. No acute or suspicious findings suggested. SEGMENTATION: No transitional anatomy. The lowest well-developed disc space is labeled L5-S1. ALIGNMENT: Anatomic. VERTEBRAE: Intact. BONE MARROW: Sclerotic vertebral body endplate changes at L4-5. DISC SIGNAL: High-grade disc space loss of height at L4-5. Mild disc space loss of height with decre ased T2 weighted intervertebral disc signal at L3-4 and L5-S1 POSTERIOR ELEMENTS: Generally intact. No pars defect evident. HARDWARE: None in the spine. CORD AND CONUS: Normal in size and signal intensity. Conus at the L1-2 level. SOFT TISSUES: No aortic aneurysm seen. No bulky retroperitoneal adenopathy or mass. No paraspinal mas s or fluid. T10-11: Mild bilateral facet hypertrophy. No central or foraminal stenosis T11-12: Mild bilateral facet hypertrophy. No central or foraminal stenosis T12-L1: Mild bilateral facet hypertrophy. No central or foraminal stenosis L1-L2: Mild bilateral facet hypertrophy. No central or foraminal stenosis L2-L3: Mild bilateral facet hypertrophy. No central or foraminal stenosis L3-L4: Mild diffuse posterior disc bulging is present with moderate bilateral facet and ligament hype rtrophy. Borderline central canal narrowing. Mild bilateral inferior foraminal narrowing without ex it nerve root impingement. L4-L5: Old left micro laminectomy defect. A calcified left paracentral/ proximal foraminal disc prot rusion is present, partially filling the left lateral recess containing the proximal left L5 nerve ro ot. These changes are best shown on axial T2 series 6 images 22-24. The left paracentral calcified disc protrusion is also seen on CT today, axial image 63/105. Elsewhere at L4-5 there is no central stenosis. Moderate bilateral foraminal narrowing is present wi thout exiting L4 nerve root impingement. L5-S1: Bilateral facet arthropathy. No central stenosis. Mild right, mild to moderate left foramina l narrowing without exit L5 nerve root impingement SACRUM: Visualized upper sacrum intact. OTHER: No other significant findings. IMPRESSION: Remote prior left micro laminectomy at L4-5 with a chronic calcified left paracentral di sc protrusion flattening the thecal sac near the takeoff of the left proximal L5 nerve root in the la teral recess. TECHNICAL DOCUMENTATION: JOB ID: [id number] [employer]- All Rights Reserved Reading location - IP/workstation name: [email or web address]
[2018-10-24] MEDS ORDERED: CIPROFLOXACIN 400 MG/D5W RTU 400 MG/200 ML RTUPB IV ONE (15:34)
[2018-10-24] MEDS ORDERED: METRONIDAZOLE 500 MG TABLET PO ONE (15:34)
[2018-10-24 16:35] VITALS: BP 112/81
== END 2018-10-24 17:14 | disposition home or self-care (01) ==
LOC: ER 11:39
DX: K57.32 Diverticulitis of large intestine without perforation or abscess without bleeding (principal); G89.29 Other chronic pain; M54.5 Low back pain; M79.10 Myalgia, unspecified site; R10.2 Pelvic and perineal pain; R30.0 Dysuria; Z88.6 Allergy status to analgesic agent; Z90.710 Acquired absence of both cervix and uterus
CPT/HCPCS: 93005; 99284; 96375; 96365; 36415; 82962; 85025; 80053; 81001; 72148; 74176; 93010; J3010; J0744

== ENCOUNTER → 2018-12-24 | Outpatient (CLI) | payer OTHER ==
--- NOTE | 2018-12-24 16:50 | RADIOLOGY REPORT (SQ) ---
EXAM DESCRIPTION: FOOT RIGHT 2 VIEWS COMPLETED DATE/TIME: 12/24/2018 4:12 pm REASON FOR STUDY: PAIN IN RT FOOT; CHRONIC RT FOOT PAIN M79.671 PAIN IN RIGHT FOOT No known injury, right foot pain for 6 months COMPARISON: None. NUMBER OF VIEWS: Three views. TECHNIQUE: AP, lateral and oblique radiographic images acquired of the right foot. LIMITATIONS: None. FINDINGS: MINERALIZATION: Normal. BONES: No acute fracture or dislocation. No worrisome bone lesions. JOINTS: Mild joint space narrowing at the 1st metatarsophalangeal joint. No bulky bony spurring or a ggressive bony erosions. SOFT TISSUES: No soft tissue swelling. No foreign body. OTHER: No other significant finding. IMPRESSION: Mild 1st metatarsophalangeal joint space narrowing. TECHNICAL DOCUMENTATION: JOB ID: [id number] [employer]- All Rights Reserved Reading location - IP/workstation name: [email or web address]
== END ==
LOC: OD 15:57
DX: M79.671 Pain in right foot (principal)

== ENCOUNTER → 2019-01-15 | Outpatient (CLI) | payer OTHER ==
--- NOTE | 2019-01-15 13:37 | WOMENS IMAGING REPORT ---
EXAM DESCRIPTION: BRENTON STEPHENS BILATERAL SCREEN COMPLETED DATE/TIME: 01/15/2019 11:31 am REASON FOR STUDY: Z12.31 ENCOUNTER FOR SCREENING MAMMOGRAM FOR MALIGNANT NEOPLASM OF [id number] E NCNTR SCREEN MAMMOGRAM FOR MALIGNANT NEOPLASM OF [place] COMPARISON: None. TECHNIQUE: Standard craniocaudal and mediolateral oblique views of each breast recorded using THUBITa l acquisition. LIMITATIONS: None. FINDINGS: RIGHT BREAST MASSES: Small round circumscribed nodule in the superior breast, located 6 to 7 cm from the nipple. CALCIFICATIONS: No new or suspicious calcifications. ARCHITECTURAL DISTORTION: None. DEVELOPING DENSITY: None. ASYMMETRY: None noted. OTHER: No other significant findings. LEFT BREAST MASSES: No suspicious masses. CALCIFICATIONS: No new or suspicious calcifications. ARCHITECTURAL DISTORTION: None. DEVELOPING DENSITY: None. ASYMMETRY: None noted. OTHER: No other significant findings. Read with the assistance of CAD. .[facility] - R2 Cenova Version 1.3 .[facility] - R2 Cenova Version 1.3 .[facility] - R2 Cenova Version 2.4 .[facility] - R2 Cenova Version 2.4 .[facility] - R2 Athletic Coordinator Version 9.2 IMPRESSION: Small round circumscribed nodule in the superior right breast, possibly a cyst. No worr isome mammographic findings in the left breast. BREAST DENSITY: b. There are scattered areas of fibroglandular density. BIRAD: 0 Incomplete: Needs Additional Imaging Evaluation and/or prior Mammograms for Comparison. RECOMMENDATION: RECOMMENDED FOLLOW-UP: Recommend additional evaluation with ultrasound of the right breast. Recommend routine screening mammography of the left breast. The patient will be contacted for additional imaging. COMMENT: The patient has been notified of the results by letter per [place] requirements. Additional no tification policies are in place for contacting patient with suspicious or incomplete findings. Quality ID #[id number]: The [employer] recommends an annual screening mammogram for women aged 40 years or over. This facility utilizes a reminder system to ensure that all patients receive reminder letters, and/or direct phone calls for appointments. This includes reminders for routine scr eening mammograms, diagnostic mammograms, or other Breast Imaging Interventions when appropriate. Th is patient will be placed in the appropriate reminder system. The [employer] (ACR) has developed recommendations for screening MRI of the breast s in certain patient populations, to be used in conjunction with mammography. Breast MRI surveillanc e may be appropriate for women with more than 20% lifetime risk of developing breast cancer as deter mined by genetic testing, significant family history of the disease, or history of mantle radiation f or Hodgkins Disease. ACR Practice Guidelines 2008. TECHNICAL DOCUMENTATION: FINDING NUMBER: (1) ASSESSMENT: (1) JOB ID: [id number] [employer]- All Rights Reserved Reading location - IP/workstation name: [email or web address]
== END ==
LOC: WI 11:12
DX: Z12.31 Encounter for screening mammogram for malignant neoplasm of breast (principal)
CPT/HCPCS: 77067

== ENCOUNTER 2019-02-07 16:15 | Emergency (ER) | payer OTHER ==
--- NOTE | 2019-02-07 16:47 | ER Document Report ---
ED Medical Screen (RME) - General Chief Complaint: Rectal Bleeding Stated Complaint: ABDOMINAL PAIN Time Seen by Provider: 02/07/19 16:37 Primary [facility] Provider: [facility] [Primary Care Provider] - Follow up as needed Mode of Arrival: Ambulatory Information source: Patient Notes: Patient is a 48-year-old female with history of colitis presenting with what she believes is a colitis flareup. Patient reports rectal drainage and rectal bleeding. She also reports low abdominal cramping with cold sweats. She reports nausea but denies fever or vomiting. Exam: Abd soft, mild TTP. I have greeted and performed a rapid initial assessment of this patient. A comprehensive ED assessment and evaluation of the patient, analysis of test results and completion of the medical decision making process will be conducted by additional ED providers. Dictation of this chart was performed using voice recognition software; therefore, there may be some unintended grammatical errors. TRAVEL OUTSIDE OF THE [place] IN LAST 30 DAYS: No - Related Data Allergies/Adverse Reactions: codeine [Codeine] Allergy (Severe, Verified 02/07/19 16:17) Over sedation, drooling oxycodone HCl [From Percocet] Allergy (Severe, Verified 02/07/19 16:17) Rash on legs Past Medical History - Past Medical History Cardiac Medical History: Denies: Hx Coronary Artery Disease, Hx Heart Attack, Hx Hypertension Pulmonary Medical History: Denies: Hx Asthma, Hx Bronchitis, Hx COPD, Hx Pneumonia Neurological Medical History: Denies: Hx Cerebrovascular Accident, Hx Seizures Renal/ Medical History: Denies: Hx Peritoneal Dialysis Musculoskeltal Medical History: Denies Hx Arthritis Psychiatric Medical History: Reports: Hx Depression - anxiety Past Surgical History: Reports: Hx Appendectomy, Hx Hysterectomy, Hx Orthopedic Surgery - back, elbow, Hx Tubal Ligation, Other - Lumbar surgery, right elbow surgery - Immunizations Hx Diphtheria, Pertussis, Tetanus Vaccination: Yes - ? Tetanus only History of Influenza Vaccine for 06/2017 - 11/2017 Season: No Physical Exam - Vital signs Vitals: Temp Pulse Resp BP Pulse Ox 97.7 F 80 18 125/82 98 02/07/19 16:20 02/07/19 16:20 02/07/19 16:20 02/07/19 16:20 02/07/19 16:20 Course - Vital Signs Vital signs: Temp Pulse Resp BP Pulse Ox 97.7 F 80 18 125/82 98 02/07/19 16:20 02/07/19 16:20 02/07/19 16:20 02/07/19 16:20 02/07/19 16:20 Doctor's Discharge - Discharge Referrals: [facility] [Primary Care Provider] - Follow up as needed
[2019-02-07] MEDS ORDERED: ONDANSETRON HCL INJ/PF 4 MG/2 ML SDV IV ONE (16:49)
[2019-02-07] MEDS ORDERED: NORMAL SALINE 1000 ML 1,000 ML IV ONE (16:49)
[2019-02-07 17:41] LABS: APPEARANCE,URINE CLEAR; BILIRUBIN,URINE NEGATIVE (NEGATIVE); COLOR,URINE YELLOW; GLUCOSE, URINE NEGATIVE (NEGATIVE); KETONES,URINE NEGATIVE (NEGATIVE); LEUKOCYTE ESTERASE,URINE NEGATIVE (NEGATIVE); NITRITE,URINE NEGATIVE (NEGATIVE); PROTEIN,URINE NEGATIVE (NEGATIVE); URINE SPECIFIC GRAVITY 1.021; UROBILINOGEN,URINE NEGATIVE mg/dL (<2.0)
[2019-02-07 17:57] LABS: ALANINE AMINOTRANSFERASE 25 U/L (9-52); ALBUMIN 4.5 g/dL (3.5-5.0); ALKALINE PHOSPHATASE 71 U/L (38-126); ANION GAP 12 (5-19); ASPARTATE AMINO TRANSFERASE 25 U/L (14-36); BILIRUBIN,DIRECT 0.2 mg/dL (0.0-0.4); BILIRUBIN,TOTAL 1.1 mg/dL (0.2-1.3); BLOOD UREA NITROGEN 16 mg/dL (7-20); CALCIUM 9.9 mg/dL (8.4-10.2); CARBON DIOXIDE 28 mmol/L (22-30); CHLORIDE 101 mmol/L (98-107); GLUCOSE 97 mg/dL (75-110); LIPASE 121.5 U/L (23-300); POTASSIUM 4.3 mmol/L (3.6-5.0); SODIUM 141.4 mmol/L (137-145); TOTAL PROTEIN 8.3 g/dL (6.3-8.2)
[2019-02-07 18:52] LABS: HEMATOCRIT 36.6 % (36.0-47.0); HEMOGLOBIN 12.4 g/dL (12.0-15.5); MEAN CORPUSCULAR HEMOGLOBIN 32.2 pg (27.0-33.4); MEAN CORPUSCULAR VOLUME 95 fl (80-97); PLATELET COUNT 330 10^3/uL (150-450); RED BLOOD COUNT 3.86 10^6/uL (3.72-5.28); RED CELL DISTRIBUTION WIDTH 13.3 % (11.5-14.0); WHITE BLOOD COUNT 5.8 10^3/uL (4.0-10.5)
[2019-02-07 19:10] LABS: ABSOLUTE LYMPHOCYTES# (MANUAL) 1.1 10^3/uL (0.5-4.7); ABSOLUTE MONOCYTES # (MANUAL) 0.5 10^3/uL (0.1-1.4); ABSOLUTE NEUTROPHILS# (MANUAL) 4.2 10^3/uL (1.7-8.2); BAND NEUTROPHILS % (MANUAL) 3 % (3-5); BASOPHILS % (MANUAL) 0 % (0-2); EOSINOPHILS % (MANUAL) 0 % (0-6); LYMPHOCYTES % (MANUAL) 15 % (13-45); METAMYELOCYTES % (MANUAL) 1 % (0); MONOCYTES % (MANUAL) 9 % (3-13); PLATELET COMMENT ADEQUATE; SEGMENTED NEUTROPHILS % (MAN) 68 % (42-78); TOTAL CELLS COUNTED 100
[2019-02-07 19:13] LABS: POLYCHROMASIA SLIGHT
--- NOTE | 2019-02-07 19:55 | ER Document Report ---
ED General - General Chief Complaint: Rectal Bleeding Stated Complaint: ABDOMINAL PAIN Time Seen by Provider: 02/07/19 16:37 Primary Care Provider: [facility] [Primary Care Provider] - Follow up as needed BRAVO ROBERTSON MD [ACTIVE STAFF] - Follow up as needed (This is the number the GI doctor) Mode of Arrival: Ambulatory Information source: Patient Notes: This is a 48-year-old female with a history of sigmoid diverticulitis who presents to the emergency room with some rectal drainage, some bleeding while wiping her anus, chills, some lower abdominal discomfort. Patient denies any nausea or vomiting. She has been eating fine (she ate [employer] for lunch this afternoon). She was under the impression that she has had ulcerative colitis in the past and she was concerned she was getting an exacerbation. TRAVEL OUTSIDE OF THE [place] IN LAST 30 DAYS: No - HPI Onset: Last week Onset/Duration: Gradual Quality of pain: Dull Severity: Moderate Pain Level: 2 Associated symptoms: denies: Chest pain, Fever, Shortness of breath Exacerbated by: Denies Relieved by: Denies Similar symptoms previously: Yes Recently seen / treated by doctor: No - Related Data Allergies/Adverse Reactions: codeine [Codeine] Allergy (Severe, Verified 02/07/19 16:17) Over sedation, drooling oxycodone HCl [From Percocet] Allergy (Severe, Verified 02/07/19 16:17) Rash on legs Past Medical History - General Information source: Patient - Social History Smoking Status: Never Smoker Cigarette use (# per day): No Chew tobacco use (# tins/day): No Frequency of alcohol use: None Drug Abuse: None Lives with: Family Family History: Reviewed & Not Pertinent Patient has suicidal ideation: No Patient has homicidal ideation: No - Past Medical History Cardiac Medical History: Denies: Hx Coronary Artery Disease, Hx Heart Attack, Hx Hypertension Pulmonary Medical History: Denies: Hx Asthma, Hx Bronchitis, Hx COPD, Hx Pneumonia Neurological Medical History: Denies: Hx Cerebrovascular Accident, Hx Seizures Renal/ Medical History: Denies: Hx Peritoneal Dialysis Malignancy Medical History: Reports: None GI Medical History: Reports: Hx Diverticulitis Musculoskeletal Medical History: Denies Hx Arthritis Psychiatric Medical History: Reports: Hx Depression - anxiety Traumatic Medical History: Reports: None Infectious Medical History: Reports: None Past Surgical History: Reports: Hx Appendectomy, Hx Hysterectomy, Hx Orthopedic Surgery - back, elbow, Hx Tubal Ligation, Other - Lumbar surgery, right elbow surgery - Immunizations Hx Diphtheria, Pertussis, Tetanus Vaccination: Yes - ? Tetanus only Review of Systems - Review of Systems Constitutional: denies: Chills, Fever EENT: No symptoms reported Cardiovascular: No symptoms reported Respiratory: No symptoms reported Gastrointestinal: See HPI Genitourinary: No symptoms reported Female Genitourinary: No symptoms reported Musculoskeletal: No symptoms reported Skin: No symptoms reported Hematologic/Lymphatic: No symptoms reported Neurological/Psychological: No symptoms reported Physical Exam - Vital signs Vitals: Temp Pulse Resp BP Pulse Ox 97.7 F 80 18 125/82 98 02/07/19 16:20 02/07/19 16:20 02/07/19 16:20 02/07/19 16:20 02/07/19 16:20 Notes: Physical exam: GENERAL: Patient is alert and oriented x3, no acute distress HEAD: Atraumatic, normocephalic. EYES: Pupils equal round and reactive to light, extraocular movements intact, sclera anicteric, conjunctiva are normal. ENT: TMs normal, nares patent, oropharynx clear without exudates. Moist mucous membranes. NECK: Normal range of motion, supple without obvious mass or JVD. LUNGS: Breath sounds clear to auscultation bilaterally and equal. No wheezes rales or rhonchi. HEART: Regular rate and rhythm without murmurs, rubs or gallops. ABDOMEN: Soft, normoactive bowel sounds. No tenderness to palpation. No guarding, no rebound. No masses appreciated. Rectal: Patient does have a hemorrhoid which appears irritated with little blood on it. There is no fistulas. Stool is brown. There is no masses on rectal exam. EXTREMITIES: Normal range of motion, no pitting or edema. No clubbing or cyanosis. NEUROLOGICAL: Cranial nerves II through XII grossly intact. Normal speech, moving all extremities. PSYCH: Normal mood, normal affect. SKIN: Warm, Dry, normal turgor, no rashes or lesions noted. Course - Vital Signs Vital signs: Temp Pulse Resp BP Pulse Ox 97.5 F 51 L 17 104/68 100 02/07/19 22:13 02/07/19 22:13 02/07/19 22:13 02/07/19 22:13 02/07/19 22:13 - Laboratory Result Diagrams: 02/07/19 18:00 02/07/19 17:19 Laboratory results interpreted by me: 02/07/19 02/07/19 17:19 18:00 Metamyelocytes % 1 H Total Protein 8.3 H Discharge - Discharge Clinical Impression: Diverticulitis Condition: Stable Disposition: HOME, SELF-CARE Instructions: Diverticulitis ([facility]) Additional Instructions: Recommendations: Rest, drink plenty fluids, take the antibiotics as prescribed. I would also take Divehi yogurt or probiotics twice daily: You can start now while you taking the antibiotics. Probiotics have been known to be protective of your gut and good for your immune system. Take the Proctofoam for the irritation of the rectum. [facility] Ultimately, he should have follow-up with a GI doctor given these GI issues that you are having: I put the number of a GI doctor affiliated with the hospital. To the ER for worsening pain, fever, vomiting or any concerns or getting worse. Prescriptions: Ciprofloxacin HCl [Cipro 500 mg Tablet] 500 mg PO BID #20 tablet Hydrocortisone/Pramoxine [Proctofoam-Hc Foam] 10 gm RC DAILY #4 foam Metronidazole [Flagyl 500 mg Tablet] 500 mg PO TID #30 tablet Referrals: [facility] [Primary Care Provider] - Follow up as needed BRAVO ROBERTSON MD [ACTIVE STAFF] - Follow up as needed (This is the number the GI doctor)
[2019-02-07 22:15] VITALS: BP 104/68
== END 2019-02-07 23:36 | disposition home or self-care (01) ==
LOC: ER 16:15
DX: K57.92 Diverticulitis of intestine, part unspecified, without perforation or abscess without bleeding (principal); K64.9 Unspecified hemorrhoids; Z88.5 Allergy status to narcotic agent
CPT/HCPCS: 99283; 96361; 96374; 36415; 83690; 85025; 81025; 80053; 81001; J2405; J7030

== ENCOUNTER 2019-03-27 19:52 | Emergency (ER) | payer OTHER ==
[2019-03-27 20:26] VITALS: BP 109/74
[2019-03-27] MEDS ORDERED: KETOROLAC TROMETHAMINE INJ/PF 30 MG/1 ML SDV IM ONE (21:02)
[2019-03-27] MEDS ORDERED: METHOCARBAMOL 750 MG TABLET PO ONE (21:03)
--- NOTE | 2019-03-27 21:05 | ER Document Report ---
ED Medical Screen (RME) - General Chief Complaint: Back Pain Stated Complaint: PAIN IN BOTH LEGS Time Seen by Provider: 03/27/19 20:52 Primary Care Provider: [facility] [Primary Care Provider] - Follow up as needed Notes: Patient is a 48-year-old female with a history of chronic low back pain and sciatica who presents to the emergency department with a chief complaint of low back pain and leg pain. Patient states that the worsening back pain and leg pain began 1 month ago. Patient states she was seen in the [facility] and was started on gabapentin which she has been taking for 10 days. Patient states this is not helping with her pain. Patient states she has also attempted Ultram with minimal relief. Patient denies recent injury or fall. Patient states she does have a history of L4-L5 discectomy in 2009. Patient states she feels like she has a shocking feeling going down both her legs. Patient states it is worse when laying down for long periods of time or when standing or moving with long periods of time. Patient denies urinary symptoms. TRAVEL OUTSIDE OF THE [place] IN LAST 30 DAYS: No - Related Data Allergies/Adverse Reactions: codeine [Codeine] Allergy (Severe, Verified 02/07/19 16:17) Over sedation, drooling oxycodone HCl [From Percocet] Allergy (Severe, Verified 02/07/19 16:17) Rash on legs Past Medical History - Social History Chew tobacco use (# tins/day): No Frequency of alcohol use: None Drug Abuse: None - Past Medical History Cardiac Medical History: Denies: Hx Coronary Artery Disease, Hx Heart Attack, Hx Hypertension Pulmonary Medical History: Denies: Hx Asthma, Hx Bronchitis, Hx COPD, Hx Pneumonia Neurological Medical History: Denies: Hx Cerebrovascular Accident, Hx Seizures Renal/ Medical History: Denies: Hx Peritoneal Dialysis GI Medical History: Reports: Hx Diverticulitis Musculoskeltal Medical History: Denies Hx Arthritis Psychiatric Medical History: Reports: Hx Depression - anxiety Past Surgical History: Reports: Hx Appendectomy, Hx Hysterectomy, Hx Orthopedic Surgery - back, elbow, Hx Tubal Ligation, Other - Lumbar surgery, right elbow surgery - Immunizations Hx Diphtheria, Pertussis, Tetanus Vaccination: Yes - ? Tetanus only History of Influenza Vaccine for 06/2017 - 11/2017 Season: No Physical Exam - Vital signs Vitals: Temp Pulse Resp BP Pulse Ox 98.4 F 66 18 109/74 98 03/27/19 20:25 03/27/19 20:25 03/27/19 20:25 03/27/19 20:25 03/27/19 20:25 - Back Back: Tender Notes: Lower paraspinal tenderness with palpation. Course - Re-evaluation Re-evalutation: 03/27/19 21:05 I have greeted and performed a rapid initial assessment of this patient. A comprehensive ED assessment and evaluation of the patient, analysis of test res ults and completion of the medical decision making process will be conducted by additional ED providers. - Vital Signs Vital signs: Temp Pulse Resp BP Pulse Ox 98.4 F 66 18 109/74 98 03/27/19 20:25 03/27/19 20:25 03/27/19 20:25 03/27/19 20:25 03/27/19 20:25 Doctor's Discharge - Discharge Referrals: [facility] [Primary Care Provider] - Follow up as needed
[2019-03-27] MEDS ORDERED: LIDOCAINE 5% (700 MG) TRANSDERMAL ADH..PATCH TP ONE (23:13)
[2019-03-27] MEDS ORDERED: DEXAMETHASONE SOD PHOS INJ 10 MG/1 ML VIAL IM ONE (23:13)
--- NOTE | 2019-03-27 23:17 | ER Document Report ---
HPI - HPI Time Seen by Provider: 03/27/19 20:52 Pain Level: 4 Notes: Patient is a 48-year-old female with a history of chronic low back pain and sciatica who presents complaining of ongoing bilateral low back pain and a burning sensation into her feet bilaterally. Patient states that she has been seen by her family doctor who placed her on gabapentin and is slowly titrating her upward. Patient states that movement does make her pain worse. Pain is not different from what it has been over the past month. She has tried tramadol as well with minimal relief. Denies any new injury. She did have a discectomy in 2009. No other concerns or complaints. She is eating and drinking without difficulty. She is urinating normally and having normal bowel movements. Denies any headache, fever, URI, sore throat, chest pain, palpitations, syncope, cough, shortness of breath, wheeze, dyspnea, abdominal pain, nausea/vomiting/diarrhea, urinary retention, dysuria, hematuria, loss of control of bowel or bladder, saddle anesthesia, muscle paralysis/weakness, or rash. - ROS Systems Reviewed and Negative: Yes All other systems reviewed and negative - REPRODUCTIVE Reproductive: DENIES: : - MUSCULOSKELETAL Musculoskeletal: REPORTS: Extremity pain - bilateral lower extremities Past Medical History - Social History Smoking Status: Never Smoker Chew tobacco use (# tins/day): No Frequency of alcohol use: None Drug Abuse: None Family History: Reviewed & Not Pertinent Patient has suicidal ideation: No Patient has homicidal ideation: No - Past Medical History Cardiac Medical History: Denies: Hx Coronary Artery Disease, Hx Heart Attack, Hx Hypertension Pulmonary Medical History: Denies: Hx Asthma, Hx Bronchitis, Hx COPD, Hx Pneumonia Neurological Medical History: Denies: Hx Cerebrovascular Accident, Hx Seizures Renal/ Medical History: Denies: Hx Peritoneal Dialysis GI Medical History: Reports: Hx Diverticulitis Musculoskeletal Medical History: Denies Hx Arthritis Psychiatric Medical History: Reports: Hx Depression - anxiety Past Surgical History: Reports: Hx Appendectomy, Hx Hysterectomy, Hx Orthopedic Surgery - back, elbow, Hx Tubal Ligation, Other - Lumbar surgery, right elbow surgery - Immunizations Hx Diphtheria, Pertussis, Tetanus Vaccination: Yes - ? Tetanus only Vertical Provider Document - CONSTITUTIONAL Agree With Documented VS: Yes Notes: PHYSICAL EXAMINATION: GENERAL: Well-appearing, well-nourished and in no acute distress. LUNGS: Breath sounds clear to auscultation bilaterally and equal. No wheezes rales or rhonchi. HEART: Regular rate and rhythm without murmurs, rubs, gallops. ABDOMEN: Soft, nontender, nondistended abdomen. No guarding, no rebound. Normal bowel sounds present. No CVA tenderness bilaterally. No pulsatile mass Musculoskeletal: LE's b/l: FROM to passive/active. Strength 5+/5. No deficits noted. No bony tenderness of extremities. Back: FROM to passive/active. Strength 5+/5. No vertebral point tenderness, stepoffs, or deformities. No other bony tenderness, erythema, swelling, or ecchymosis. SLR negative b/l. + tenderness to the L-paraspinal mm b/l. Mild spasming. No SI jt tenderness. No foot drop Extremities: No cyanosis, clubbing, or edema b/l. Peripheral pulses 2+. Capillary refill less than 2 seconds. NEUROLOGICAL: Normal speech, ataxic gait. Normal sensory, motor exams. Reflexes 2+ b/l. PSYCH: Normal mood, normal affect. SKIN: Warm, Dry, normal turgor, no rashes or lesions noted. - INFECTION CONTROL TRAVEL OUTSIDE OF THE [place] IN LAST 30 DAYS: No Course - Re-evaluation Re-evalutation: 03/27/19 23:15 Patient is an afebrile, well-hydrated, 48-year-old male who presents to the ED with acute on chronic low back pain. Vitals are acceptable. PE is otherwise unremarkable for any focal neurological deficits. Patient was given Decadron, Toradol, and Lidoderm patch. She has no significant tachycardia, tachypnea, or hypoxia. She is nontoxic-appearing and is tolerating p.o. without difficulties. There are no signs of infection. No other red flag symptoms noted. No other labs or imaging warranted at this time based on H&P. Low suspicion for any meningitis, fracture, expanding/ruptured AAA, cauda equina syndrome, epidural mass lesion/abscess, herniated disc causing severe spinal stenosis, or other systemic infection at this time. Patient is aware that this condition can change from initial presentation and that she needs monitor symptoms closely for any acute changes. I will send her home with a prescription for robaxin and naproxen. Conservative measures otherwise for symptoms. Recheck with your PCM in 3-5 days. Consider consult with orthopedic/physical therapy. Return to the ED with any worsening/concerning symptoms otherwise as reviewed discharge. Patient is in agreement. - Vital Signs Vital signs: Temp Pulse Resp BP Pulse Ox 98.4 F 66 18 109/74 98 03/27/19 20:25 03/27/19 20:25 03/27/19 20:25 03/27/19 20:25 03/27/19 20:25 Discharge - Discharge Clinical Impression: Acute exacerbation of chronic low back pain Condition: Stable Disposition: HOME, SELF-CARE Instructions: Low Back Pain ([facility]) Additional Instructions: Rest, Ice Tylenol/ibuprofen as needed Light stretches daily Strength exercises as able Moist heat and massage may help F/u with your PCP in 3-5 days for a recheck Consider consult(s) with Orthopedics/physical therapy for ongoing/worsening symptoms Return to the ED with any worsening symptoms and/or development of fever, headache, chest pain, palpitations, syncope, shortness of breath, trouble breathing, abdominal pain, n/v/d, blood in stool/urine, loss of control of bowel/bladder, urinary retention, muscle weakness/paralysis, saddle anesthesia, numbness/tingling, or other worsening symptoms that are concerning to you. Prescriptions: Lidocaine [Lidoderm 5% (700 mg) Transdermal Patch] 1 patch TP DAILY #10 adh..patch Methocarbamol [Robaxin] 500 mg PO TID PRN #12 tablet PRN Reason: Naproxen 500 mg PO BID #20 tablet Referrals: [facility] [Primary Care Provider] - Follow up as needed [facility] [Provider Group] - Follow up as needed
== END 2019-03-27 23:56 | disposition home or self-care (01) ==
LOC: ER 19:52
DX: M54.5 Low back pain (principal); G89.29 Other chronic pain; M79.671 Pain in right foot; M79.672 Pain in left foot
CPT/HCPCS: 99283; 96372; J3490; J1885; J1100

== ENCOUNTER 2019-07-03 18:51 | Emergency (ER) | payer OTHER ==
[2019-07-03 19:22] VITALS: BP 128/76
--- NOTE | 2019-07-03 19:47 | ER Document Report ---
ED Medical Screen (RME) - General Chief Complaint: Back Pain Stated Complaint: BACK/LEG PAIN, GREEN BOWELS Time Seen by Provider: 07/03/19 19:42 Mode of Arrival: Ambulatory Information source: Patient Notes: 49-year-old female presented to ED for complaint of bowel movement there was green with a blue tinge. She states she has a history of diverticulosis and she was worried about this. States she also has low back pain with pain to her legs and feet. She states her lower right abdomen feels cold but there is no abdominal pain. She states she has had chills. She has a history of anxiety depression diverticulosis and back problems. She has had a hysterectomy and a back surgery. She is a former smoker does not drink or do drugs. She is alert oriented respirations regular nonlabored. She states that time she does have nausea but no nausea at this time. I have greeted and performed a rapid initial assessment of this patient. A comprehensive ED assessment and evaluation of the patient, analysis of test results and completion of medical decision making process will be conducted by an additional ED providers. TRAVEL OUTSIDE OF THE [place] IN LAST 30 DAYS: No - Related Data Allergies/Adverse Reactions: codeine [Codeine] Allergy (Severe, Verified 02/07/19 16:17) Over sedation, drooling oxycodone HCl [From Percocet] Allergy (Severe, Verified 02/07/19 16:17) Rash on legs Home Medications: zoloft Past Medical History - Social History Chew tobacco use (# tins/day): No Frequency of alcohol use: None Drug Abuse: None - Past Medical History Cardiac Medical History: Denies: Hx Coronary Artery Disease, Hx Heart Attack, Hx Hypertension Pulmonary Medical History: Denies: Hx Asthma, Hx Bronchitis, Hx COPD, Hx Pneumonia Neurological Medical History: Denies: Hx Cerebrovascular Accident, Hx Seizures Renal/ Medical History: Denies: Hx Peritoneal Dialysis GI Medical History: Reports: Hx Diverticulitis Musculoskeltal Medical History: Denies Hx Arthritis Psychiatric Medical History: Reports: Hx Depression - anxiety Past Surgical History: Reports: Hx Appendectomy, Hx Hysterectomy, Hx Orthopedic Surgery - back, elbow, Hx Tubal Ligation, Other - Lumbar surgery, right elbow surgery - Immunizations Hx Diphtheria, Pertussis, Tetanus Vaccination: Yes - ? Tetanus only Physical Exam - Vital signs Vitals: Temp Pulse Resp BP Pulse Ox 98.2 F 58 L 12 128/76 H 98 07/03/19 19:20 07/03/19 19:20 07/03/19 19:20 07/03/19 19:20 07/03/19 19:20 Course - Vital Signs Vital signs: Temp Pulse Resp BP Pulse Ox 98.2 F 58 L 12 128/76 H 98 07/03/19 19:20 07/03/19 19:20 07/03/19 19:20 07/03/19 19:20 07/03/19 19:20
--- NOTE | 2019-07-03 20:27 | RADIOLOGY REPORT (SQ) ---
EXAM DESCRIPTION: XR LUMBAR SPINE ANTEROPOSTERIOR, LATERAL, AND OBLIQUES COMPLETED DATE/TME: 07/03/2019 19:45 CLINICAL HISTORY: 49 years, Female, Back pain radiating to feet COMPARISON: None. NUMBER OF VIEWS: TECHNIQUE: LIMITATIONS: None. FINDINGS: There is disc space narrowing and osteophyte formation at the L4-L5 level. No fracture or dislocation. Vertebral bodies are normal in height. Mineralization of bone appears normal. IMPRESSION: Degenerative disc disease at the L4-L5 level. If disc herniation is a clinical concern, then a nonemergent MRI of the lumbar spine is recommended for further evaluation. copyright 2010 [employer]- All Rights Reserved
[2019-07-03 21:32] LABS: ABSOLUTE BASOPHILS # (AUTO) 0.1 10^3/uL (0.0-0.2); ABSOLUTE EOSINOPHILS # (AUTO) 0.1 10^3/uL (0.0-0.6); ABSOLUTE LYMPHOCYTES (AUTO) 2.9 10^3/uL (0.5-4.7); ABSOLUTE MONOCYTES (AUTO) 0.4 10^3/uL (0.1-1.4); ABSOLUTE NEUT (AUTO) 3.3 10^3/uL (1.7-8.2); BASOPHILS % (AUTO) 1.3 % (0-2); EOSINOPHILS % (AUTO) 1.8 % (0-6); HEMATOCRIT 40.2 % (36.0-47.0); HEMOGLOBIN 13.5 g/dL (12.0-15.5); LYMPHOCYTES % (AUTO) 42.6 % (13-45); MEAN CORPUSCULAR HEMOGLOBIN 30.1 pg (27.0-33.4); MEAN CORPUSCULAR HGB CONC 33.5 g/dL (32.0-36.0); MEAN CORPUSCULAR VOLUME 90 fl (80-97); MONOCYTES % (AUTO) 6.5 % (3-13); PLATELET COUNT 238 10^3/uL (150-450); RED BLOOD COUNT 4.48 10^6/uL (3.72-5.28); RED CELL DISTRIBUTION WIDTH 12.6 % (11.5-14.0); SEGMENTED NEUTROPHILS % (AUTO) 47.8 % (42-78); TOTAL CELLS COUNTED % (AUTO) 100 %; WHITE BLOOD COUNT 6.9 10^3/uL (4.0-10.5)
[2019-07-03 21:53] LABS: ALBUMIN 4.6 g/dL (3.5-5.0); ALKALINE PHOSPHATASE 83 U/L (38-126); ANION GAP 10 (5-19); ASPARTATE AMINO TRANSFERASE 23 U/L (14-36); BILIRUBIN,DIRECT 0.1 mg/dL (0.0-0.4); BILIRUBIN,TOTAL 0.9 mg/dL (0.2-1.3); BLOOD UREA NITROGEN 18 mg/dL (7-20); CALCIUM 9.4 mg/dL (8.4-10.2); CARBON DIOXIDE 25 mmol/L (22-30); CHLORIDE 102 mmol/L (98-107); GLUCOSE 86 mg/dL (75-110); POTASSIUM 3.8 mmol/L (3.6-5.0); TOTAL PROTEIN 8.2 g/dL (6.3-8.2)
== END 2019-07-03 23:06 | disposition left against medical advice (07) ==
LOC: ER 18:51
DX: Z53.21 Procedure and treatment not carried out due to patient leaving prior to being seen by health care provider (principal); M54.9 Dorsalgia, unspecified; M54.5 Low back pain; M79.604 Pain in right leg; M79.605 Pain in left leg; M79.671 Pain in right foot; M79.672 Pain in left foot; F41.9 Anxiety disorder, unspecified
CPT/HCPCS: 36415; 72110; 80053; 85025; 99283

== ENCOUNTER 2019-07-04 07:11 | Emergency (ER) | payer OTHER ==
--- NOTE | 2019-07-04 08:14 | ER Document Report ---
ED General - General Chief Complaint: Back Pain Stated Complaint: BACK, LEGS AND FEET PAIN Time Seen by Provider: 07/04/19 08:13 Mode of Arrival: Ambulatory Information source: Patient TRAVEL OUTSIDE OF THE [place] IN LAST 30 DAYS: No - HPI Notes: 49-year-old female with a history of chronic lower back pain and sciatica presents to the ED due to being told to return from an abnormal lumbar spine x- ray that was completed last night at 2100. Patient states that she has had numbness and tingling in her left lower leg which has been chronic but has intensified over the last couple of days along with pelvic numbness and tingling. Patient does have a history of having a discectomy in 2010, denies any new injuries or recent traumas. Patient is having normal bowel and bladder functions, but reports burning with urination. Patient reports she feels like she has some foot dropping however this is not been observed by nursing staff. Denies fevers, chills, chest pain,palpitations, shortness of breath, dyspnea, nausea, vomiting, diarrhea, abdominal pain, hematuria,blurred vision, double vision, loss of vision, speech changes, LH, dizziness, syncope, headaches, wheezing, ST, URI, neck pain, weakness, bowel or bladder dysfunction, muscle paralysis, weakness in bilateral upper or lower extremities equally or rash. 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 Drug Abuse: None Family History: Reviewed & Not Pertinent Patient has suicidal ideation: No Patient has homicidal ideation: No - Past Medical History Cardiac Medical History: Denies: Hx Coronary Artery Disease, Hx Heart Attack, Hx Hypertension Pulmonary Medical History: Denies: Hx Asthma, Hx Bronchitis, Hx COPD, Hx Pneumonia Neurological Medical History: Denies: Hx Cerebrovascular Accident, Hx Seizures Renal/ Medical History: Denies: Hx Peritoneal Dialysis GI Medical History: Reports: Hx Diverticulitis Musculoskeletal Medical History: Denies Hx Arthritis Psychiatric Medical History: Reports: Hx Depression - anxiety Past Surgical History: Reports: Hx Appendectomy, Hx Hysterectomy, Hx Orthopedic Surgery - back, elbow, Hx Tubal Ligation, Other - Lumbar surgery, right elbow surgery - Immunizations Hx Diphtheria, Pertussis, Tetanus Vaccination: Yes - ? Tetanus only Review of Systems - Review of Systems Constitutional: No symptoms reported EENT: No symptoms reported Cardiovascular: No symptoms reported Respiratory: No symptoms reported Gastrointestinal: See HPI Genitourinary: No symptoms reported Female Genitourinary: No symptoms reported Musculoskeletal: No symptoms reported Skin: No symptoms reported Hematologic/Lymphatic: No symptoms reported Neurological/Psychological: No symptoms reported Physical Exam - Vital signs Vitals: Temp Pulse Resp BP Pulse Ox 97.8 F 62 16 105/70 98 07/04/19 07:17 07/04/19 07:17 07/04/19 07:17 07/04/19 07:17 07/04/19 07:17 Notes: PHYSICAL EXAMINATION: reviewed vital signs by RN GENERAL: Well-appearing, well-nourished and in no acute distress. HEAD: Atraumatic, normocephalic. EYES: Pupils equal round and reactive to light, extraocular movements intact, conjunctiva are normal. ENT: Nares patent, oropharynx clear without exudates. Moist mucous membranes. NECK: Normal range of motion, supple without lymphadenopathy LUNGS: Breath sounds clear to auscultation bilaterally and equal. No wheezes rales or rhonchi. HEART: Regular rate and rhythm without murmurs ABDOMEN: Soft, nontender, nondistended abdomen. No guarding, no rebound. No masses appreciated. Female : deferred Musculoskeletal: Normal range of motion, no pitting or edema. No cyanosis. Pain with flexion and extension at 30 degrees, positive straight leg test bilaterally. Normal hip rotation. DTR +2 in BLE equally. Strength 5 out of 5 both distally and proximally to bilateral lower extremities normal motor and sensory function in BLE equally. Distal pulses + 2 BLE equally. Noted paraspinal tenderness near L2 and L3. Diminished ability to differentiate between sharp and soft pelvic region. strength 5 out of 5 in bilateral lower extremities equally. no spinal tenderness. No CVA tenderness bilaterally. Femoral pulses + 2 bilaterally and equally. No abrasions, scars, lacerations, ecchymosis of any recent trauma. normal gait. NEUROLOGICAL: Cranial nerves grossly intact. Normal speech, normal gait. Normal sensory, motor exams PSYCH: Normal mood, normal affect. SKIN: Warm, Dry, normal turgor, no rashes or lesions noted. - Notes Notes: PHYSICAL EXAMINATION: reviewed vital signs by RN GENERAL: Well-appearing, well-nourished and in no acute distress. HEAD: Atraumatic, normocephalic. EYES: Pupils equal round and reactive to light, extraocular movements intact, conjunctiva are normal. ENT: Nares patent, oropharynx clear without exudates. Moist mucous membranes. NECK: Normal range of motion, supple without lymphadenopathy LUNGS: Breath sounds clear to auscultation bilaterally and equal. No wheezes rales or rhonchi. HEART: Regular rate and rhythm without murmurs ABDOMEN: Soft, nontender, nondistended abdomen. No guarding, no rebound. No masses appreciated. Female : deferred Musculoskeletal: Normal range of motion, no pitting or edema. Pain with flexion and extension at 30 degrees, positive straight leg test. Normal hip rotation. DTR +2 in BLE equally. Strength 5 out of 5 both distally and proximally to bilateral lower extremities normal motor and sensory function in BLE equally. Distal pulses + 2 BLE equally. Noted paraspinal tenderness near L1 and L5. Strength 5 out of 5 in bilateral lower extremities equally. noted lumbar spinal tenderness from L1-L5. No CVA tenderness bilaterally. Femoral pulses + 2 bilaterally and equally. No abrasions, scars, lacerations, ecchymosis of any recent trauma. normal gait. NEUROLOGICAL: Cranial nerves grossly intact. Normal speech, normal gait. Normal sensory, motor exams PSYCH: Normal mood, normal affect. SKIN: Warm, Dry, normal turgor, no rashes or lesions noted. Course - Re-evaluation Re-evalutation: 07/04/19 09:32 Afebrile vital stable no distress. Nurse's notes reviewed. Patient was called back by the emergency room after seen yesterday evening where an x-ray report suggested a nonemergent lumbar MRI, patient came back early this morning to obtain her MRI. MRI was unchanged from September 2018 MRI stated old left L4 microlaminectomy and discectomy. There is minimal residual disc or scar tissue on the left in the lateral recess at L4-L5 with mild mass-effect on the proximal L5 nerve root. This is unchanged from September 27, 2018 also objective pelvic numbness and tingling as well as left lower back pain that extends to her left lower extremitiy, which is consistent with her history, otherwise unremarkable for any focal neurological deficits. Patient given Toradol and Lidoderm patches. No significant tachycardia tachypnea or hypoxia. Nontoxic-appearing is tolerating p.o. without difficulty. No signs of infection. No other red flag symptoms noted. Urinalysis, CBC and CMP unremarkable. Low suspicion for meningitis fracture, expanding ruptured AAA, cauda equina syndrome, epidural mass/lesion, herniated disc causing severe spinal stenosis, systemic infection at this time. Patient is awaiting incision and change ofanemia she needs monitoring symptoms closely for any acute injuries. I will send her home with a prescription for lidocaine patches, she can also take [id number] ibuprofen and Tylenol as needed for pain. Conservative measures otherwise for symptoms. Recheck with her your PCM in 3 to 5 days. Consider consult with orthopedic/ neurosurgeon. Return to the ED with any worsening concerning symptoms otherwise review discharge. Patient is in agreement with plan of care and agree with plan of care. 07/04/19 12:54 - Vital Signs Vital signs: Temp Pulse Resp BP Pulse Ox 97.8 F 62 16 105/70 98 07/04/19 07:17 07/04/19 07:17 07/04/19 07:17 07/04/19 07:17 07/04/19 07:17 - Laboratory Result Diagrams: 07/04/19 09:23 07/04/19 09:23 Laboratory results interpreted by me: 07/04/19 09:23 Total Protein 8.3 H Discharge - Discharge Clinical Impression: Acute exacerbation of chronic low back pain Condition: Stable Disposition: HOME, SELF-CARE Instructions: Chronic Back Pain ([facility]), Low Back Pain ([facility]), Stretching Exercises for the Back ([facility]) Additional Instructions: Your MRI lumbar spine was unchanged from October 24, 2018. All of your lab work is normal. Advised rice therapy, apply lidocaine patches to area of pain, rest, follow-up with orthopedic surgeon and neurosurgeon for further evaluation of care. We have ruled out any emergent life-threatening etiologies of your chronic back pain at this time Prescriptions: Lidocaine/Menthol [Lidall 4%-1% Patch] 1 each TP TIDP PRN #20 adh..patch PRN Reason: Referrals: MIKE FRIEND MD [COMMUNITY BASED STAFF] - Follow up in 3-5 days JESUS NEVILLE MD [ACTIVE STAFF] - Follow up tomorrow LINDA HAJI JR, DO [ACTIVE PROVISIONAL STAFF] - Follow up as needed
[2019-07-04 08:40] LABS: APPEARANCE,URINE SLIGHTLY-CLOUDY; BILIRUBIN,URINE NEGATIVE (NEGATIVE); COLOR,URINE YELLOW; GLUCOSE, URINE NEGATIVE (NEGATIVE); KETONES,URINE NEGATIVE (NEGATIVE); LEUKOCYTE ESTERASE,URINE NEGATIVE (NEGATIVE); NITRITE,URINE NEGATIVE (NEGATIVE); PROTEIN,URINE NEGATIVE (NEGATIVE); URINE SPECIFIC GRAVITY 1.008; UROBILINOGEN,URINE NEGATIVE mg/dL (<2.0)
[2019-07-04 09:51] LABS: ABSOLUTE EOSINOPHILS # (AUTO) 0.1 10^3/uL (0.0-0.6); ABSOLUTE LYMPHOCYTES (AUTO) 1.8 10^3/uL (0.5-4.7); ABSOLUTE MONOCYTES (AUTO) 0.3 10^3/uL (0.1-1.4); ABSOLUTE NEUT (AUTO) 2.2 10^3/uL (1.7-8.2); BASOPHILS % (AUTO) 0.6 % (0-2); EOSINOPHILS % (AUTO) 1.6 % (0-6); HEMATOCRIT 42.1 % (36.0-47.0); HEMOGLOBIN 14.1 g/dL (12.0-15.5); LYMPHOCYTES % (AUTO) 41.4 % (13-45); MEAN CORPUSCULAR HEMOGLOBIN 30.4 pg (27.0-33.4); MEAN CORPUSCULAR HGB CONC 33.6 g/dL (32.0-36.0); MEAN CORPUSCULAR VOLUME 91 fl (80-97); PLATELET COUNT 225 10^3/uL (150-450); RED BLOOD COUNT 4.65 10^6/uL (3.72-5.28); RED CELL DISTRIBUTION WIDTH 12.8 % (11.5-14.0); SEGMENTED NEUTROPHILS % (AUTO) 50.4 % (42-78); TOTAL CELLS COUNTED % (AUTO) 100 %; WHITE BLOOD COUNT 4.5 10^3/uL (4.0-10.5)
[2019-07-04 10:10] LABS: ALBUMIN 4.5 g/dL (3.5-5.0); ANION GAP 9 (5-19); ASPARTATE AMINO TRANSFERASE 23 U/L (14-36); BILIRUBIN,DIRECT 0.1 mg/dL (0.0-0.4); BILIRUBIN,TOTAL 1.2 mg/dL (0.2-1.3); CARBON DIOXIDE 26 mmol/L (22-30); CHLORIDE 105 mmol/L (98-107)
[2019-07-04 10:27] LABS: ALKALINE PHOSPHATASE 71 U/L (38-126); BLOOD UREA NITROGEN 13 mg/dL (7-20); C-REACTIVE PROTEIN < 5.0 mg/L (<10.0); CALCIUM 9.8 mg/dL (8.4-10.2); GLUCOSE 104 mg/dL (75-110); TOTAL PROTEIN 8.3 g/dL (6.3-8.2)
--- NOTE | 2019-07-04 11:17 | RADIOLOGY REPORT (SQ) ---
EXAM DESCRIPTION: MRI LUMBAR SPINE WITHOUT COMPLETED DATE/TIME: 07/04/2019 10:52 am REASON FOR STUDY: pelvic n/c, leg weakness,told to return d/t xray COMPARISON: CT abdomen pelvis 10/24/2018 Lumbar spine MRI 10/24/2018 Lumbar spine plain films 07/03/2019 TECHNIQUE: Sagittal and Axial imaging includes T1, T2, STIR and gradient echo sequences. Coronal T2/ HASTE imaging. LIMITATIONS: None. FINDINGS: VISUALIZED UPPER ABDOMEN: Limited evaluation. No acute or suspicious findings suggested. SEGMENTATION: No transitional anatomy. The lowest well-developed disc space is labeled L5-S1. ALIGNMENT: Anatomic. VERTEBRAE: Intact. BONE MARROW: Fatty reactive vertebral body endplate changes at L4-5 DISC SIGNAL: High-grade disc space loss of height at L4-5 POSTERIOR ELEMENTS: Micro laminectomy on the left at L4 HARDWARE: None in the spine. CORD AND CONUS: Normal in size and signal intensity. Conus at the L1 level. SOFT TISSUES: No aortic aneurysm seen. No bulky retroperitoneal adenopathy or mass. No paraspinal mas s or fluid. T11-12: Mild bilateral facet hypertrophy. No central or foraminal stenosis T12-L1: No central or foraminal stenosis L1-L2: Mild bilateral facet hypertrophy. No central or foraminal stenosis L2-L3: Mild bilateral facet hypertrophy. No central or foraminal stenosis L3-L4: Mild diffuse posterior disc bulging, moderate bilateral facet hypertrophy. Borderline central canal narrowing best shown on axial T2 image 18. No significant foraminal narrowing. L4-L5: Left micro laminectomy. Mild posterior diffuse disc bulging. There is a tiny left paracentra l protrusion or scar tissue abutting the left proximal L5 nerve root in the lateral recess on axial i mage 24 and 25. This is similar compared to MRI 10/24/2018. No significant central canal or foramina l narrowing. No exiting L4 nerve root impingement L5-S1: Minimal posterior disc bulge and bony spurring, mild bilateral facet and ligament hypertrophy. No significant central canal narrowing. Mild bilateral foraminal narrowing SACRUM: Visualized upper sacrum intact. OTHER: Findings and clinical history the patient were discussed with Dr. Ty in the emergency room IMPRESSION: Old left L4 micro laminectomy and discectomy. There is minimal residual disc or scar ti ssue on the left in the lateral recess at L4-5 with mild mass effect on the proximal L5 nerve root. This is unchanged from 10/24/2018. TECHNICAL DOCUMENTATION: JOB ID: [id number] [employer]- All Rights Reserved Reading location - IP/workstation name: [email or web address]
[2019-07-04] MEDS ORDERED: KETOROLAC TROMETHAMINE 60 MG/2 ML SDV IM ONE (12:38)
[2019-07-04 12:56] VITALS: BP 112/70
== END 2019-07-04 12:56 | disposition home or self-care (01) ==
LOC: ER 07:11
DX: M54.5 Low back pain (principal); G89.29 Other chronic pain; R20.0 Anesthesia of skin; R20.2 Paresthesia of skin; Z98.890 Other specified postprocedural states; Z87.891 Personal history of nicotine dependence; Z88.5 Allergy status to narcotic agent
CPT/HCPCS: 36415; 85025; 86140; 80053; 81001; 72148; J1885; 96374; 99283

== ENCOUNTER 2019-11-08 07:32 | Emergency (ER) | payer OTHER ==
[2019-11-08 10:43] LABS: APPEARANCE,URINE CLEAR; BILIRUBIN,URINE NEGATIVE (NEGATIVE); COLOR,URINE COLORLESS; GLUCOSE, URINE NEGATIVE (NEGATIVE); KETONES,URINE NEGATIVE (NEGATIVE); LEUKOCYTE ESTERASE,URINE NEGATIVE (NEGATIVE); NITRITE,URINE NEGATIVE (NEGATIVE); PROTEIN,URINE NEGATIVE (NEGATIVE); URINE SPECIFIC GRAVITY 1.001; UROBILINOGEN,URINE NEGATIVE mg/dL (<2.0)
[2019-11-08] MEDS ORDERED: MECLIZINE HCL 25 MG TABLET PO ONE (12:33)
[2019-11-08] MEDS ORDERED: DEXAMETHASONE SOD PHOS INJ 10 MG/1 ML VIAL IM ONE (12:34)
--- NOTE | 2019-11-08 12:34 | ER Document Report ---
ED General - General Chief Complaint: Pain All Over Stated Complaint: BODY PAIN Time Seen by Provider: 11/08/19 12:11 Primary Care Provider: [facility] [Provider Group] - Follow up in 1 week Notes: Patient is a 49-year-old female presents emergency department with a chief complaint of generalized pain everywhere. Patient states that she has had her symptoms for the past 4 months. About 3 months ago she weaned herself off her Adderall and Zoloft. She states that she ended up doing this slowly. Patient notes that she has sciatic nerve pain, but states that it is now constant. She states that it is sharp pains in her neck and her arms and legs. She denies any loss of bladder or bowel function. She will have an occasional paresthesia, but sensation comes back. Patient is currently in physical therapy. TRAVEL OUTSIDE OF THE [place] IN LAST 30 DAYS: No - Related Data Allergies/Adverse Reactions: codeine [Codeine] Allergy (Severe, Verified 11/08/19 08:18) Over sedation, drooling oxycodone HCl [From Percocet] Allergy (Severe, Verified 11/08/19 08:18) Rash on legs Past Medical History - Social History Smoking Status: Former Smoker Family History: Reviewed & Not Pertinent Patient has suicidal ideation: No Patient has homicidal ideation: No - Past Medical History Cardiac Medical History: Denies: Hx Coronary Artery Disease, Hx Heart Attack, Hx Hypertension Pulmonary Medical History: Denies: Hx Asthma, Hx Bronchitis, Hx COPD, Hx Pneumonia Neurological Medical History: Denies: Hx Cerebrovascular Accident, Hx Seizures Renal/ Medical History: Denies: Hx Peritoneal Dialysis GI Medical History: Reports: Hx Diverticulitis Musculoskeletal Medical History: Denies Hx Arthritis Psychiatric Medical History: Reports: Hx Depression - anxiety Past Surgical History: Reports: Hx Appendectomy, Hx Hysterectomy, Hx Orthopedic Surgery - back, elbow, Hx Tubal Ligation, Other - Lumbar surgery, right elbow surgery - Immunizations Hx Diphtheria, Pertussis, Tetanus Vaccination: Yes - ? Tetanus only Review of Systems - Review of Systems Notes: REVIEW OF SYSTEMS: CONSTITUTIONAL : See HPI. EENT: See HPI. CARDIOVASCULAR: Denies chest pain. RESPIRATORY: Denies shortness of breath, cough, congestion, difficulty breathing, or wheezing. GASTROINTESTINAL: Denies nausea, vomiting, and diarrhea. Denies abdominal pain. Denies constipation. GENITOURINARY: Denies difficulty urinating, burning, blood in urine, urgency or frequency. MUSCULOSKELETAL: See HPI. SKIN: Denies rash, itchiness, or lesions HEMATOLOGIC : Denies easy bruising or bleeding. LYMPHATIC: Denies swollen, painful, enlarged glands. NEUROLOGICAL: Denies no numbness or tingling denies weakness. Denies headache. Denies altered mental status. Denies alteration in speech. PSYCHIATRIC: Denies stress, anxiety, alteration in sleep patterns, or depression. All other systems reviewed and negative. Physical Exam - Vital signs Vitals: Temp Pulse Resp BP Pulse Ox 97.5 F 65 18 130/80 H 100 11/08/19 07:57 11/08/19 07:57 11/08/19 07:57 11/08/19 07:57 11/08/19 07:57 - Notes Notes: PHYSICAL EXAMINATION: GENERAL: Appears well, healthy, well-nourished, no acute distress. HEAD: Normocephalic, atraumatic. EYES: PERRL, conjunctiva normal, all extraocular movements intact, sclera nonicteric ENT: Moist mucous membranes. NECK: Supple, no noticeable swelling, redness, rash. Normal range of motion. LUNGS: Equal breath sounds bilaterally and clear to auscultation. No wheezes rales or rhonchi. CARDIOVASCULAR: S1-S2, regular rate, regular rhythm. Radial pulses 2+, normal. ABDOMEN: Normoactive bowel sounds. Soft, nontender, no guarding, no rebound tenderness, and no masses palpated. EXTREMITIES: Normal strength and range of motion, no pitting or edema. No cyanosis. NEUROLOGICAL: Moves all extremities upon command. Strength 5/5 in all extremities. PSYCH: Normal mood, normal affect. SKIN: Warm, dry. No rash, lesions, ulcerations noted. Normal skin turgor. BACK: Tenderness noted to paraspinal muscles and back. No CVA tenderness noted. Course - Re-evaluation Re-evalutation: 11/08/19 Urinalysis is unremarkable. Based on patient's physical exam, she has tenderness noted to her muscles in her back. She has pain to her paraspinal muscles. She denies any IV drug abuse, therefore I do not suspect a epidural abscess. Patient received meclizine for her dizziness, Decadron, and Robaxin here in the emergency department and upon reevaluation she states that she feels much better. Patient will be sent home with meclizine and Robaxin to help with her symptoms. Advised that she follow-up with her primary care provider. She is in agreement with this plan. Follow-up precautions were given. Verbal discharge instructions were given to the patient. They verbalized understanding. They are stable for discharge. - Vital Signs Vital signs: Temp Pulse Resp BP Pulse Ox 98.1 F 61 18 109/66 99 11/08/19 13:55 11/08/19 13:55 11/08/19 07:57 11/08/19 13:55 11/08/19 13:55 Discharge - Discharge Clinical Impression: Dizziness, Generalized pain Condition: Stable Disposition: HOME, SELF-CARE Additional Instructions: You were seen today in the emergency department for weakness and dizziness. Your urine was normal and you do not have a urinary tract infection. Your symptoms have improved with Decadron, steroid, meclizine for dizziness and Robaxin for muscle pain. You are going home with meclizine and Robaxin prescriptions. Try to take Tylenol for arthritis. You can take 1000 mg every 6 hours as needed for pain. Please follow-up with your primary care provider in regards to this visit. Prescriptions: Meclizine HCl [Antivert 25 mg Tablet] 25 mg PO TID PRN #21 tablet PRN Reason: Fluticasone Propionate [Flonase Nasal Rincon 50 Mcg/Rincon 16 gm] 1 sprays NASL DAILY #1 inhaler Methocarbamol [Robaxin 500 mg Tablet] 500 mg PO BID PRN #20 tablet PRN Reason: Forms: Return to Work Referrals: [facility] [Provider Group] - Follow up in 1 week
[2019-11-08] MEDS ORDERED: METHOCARBAMOL 500 MG TABLET PO ONE (12:39)
[2019-11-08 13:56] VITALS: BP 109/66
== END 2019-11-08 13:58 | disposition home or self-care (01) ==
LOC: ER 07:32
DX: M79.10 Myalgia, unspecified site (principal); R42 Dizziness and giddiness; Z88.6 Allergy status to analgesic agent; Z90.710 Acquired absence of both cervix and uterus
CPT/HCPCS: 99283; 96372; 81001; J1100

== ENCOUNTER → 2020-04-02 | Outpatient (CLI) | payer OTHER ==
[2020-04-02 10:14] LABS: ABSOLUTE EOSINOPHILS # (AUTO) 0.1 10^3/uL (0.0-0.6); ABSOLUTE LYMPHOCYTES (AUTO) 1.6 10^3/uL (0.5-4.7); ABSOLUTE MONOCYTES (AUTO) 0.2 10^3/uL (0.1-1.4); ABSOLUTE NEUT (AUTO) 2.6 10^3/uL (1.7-8.2); BASOPHILS % (AUTO) 0.9 % (0-2); EOSINOPHILS % (AUTO) 2.2 % (0-6); HEMATOCRIT 40.9 % (36.0-47.0); HEMOGLOBIN 13.7 g/dL (12.0-15.5); LYMPHOCYTES % (AUTO) 34.6 % (13-45); MEAN CORPUSCULAR HEMOGLOBIN 30.9 pg (27.0-33.4); MEAN CORPUSCULAR HGB CONC 33.5 g/dL (32.0-36.0); MEAN CORPUSCULAR VOLUME 92 fl (80-97); MONOCYTES % (AUTO) 5.3 % (3-13); PLATELET COUNT 221 10^3/uL (150-450); RED BLOOD COUNT 4.44 10^6/uL (3.72-5.28); RED CELL DISTRIBUTION WIDTH 13.2 % (11.5-14.0); TOTAL CELLS COUNTED % (AUTO) 100 %; WHITE BLOOD COUNT 4.5 10^3/uL (4.0-10.5)
[2020-04-02 10:48] LABS: ALBUMIN 4.4 g/dL (3.5-5.0); ALKALINE PHOSPHATASE 67 U/L (38-126); ANION GAP 7 (5-19); ASPARTATE AMINO TRANSFERASE 19 U/L (14-36); BILIRUBIN,DIRECT 0.1 mg/dL (0.0-0.4); BLOOD UREA NITROGEN 11 mg/dL (7-20); CALCIUM 9.5 mg/dL (8.4-10.2); CARBON DIOXIDE 27 mmol/L (22-30); CHLORIDE 103 mmol/L (98-107); CHOLESTEROL 250.64 mg/dL (0-200); GLUCOSE 104 mg/dL (75-110); PHOSPHORUS 3.3 mg/dL (2.5-4.5); POTASSIUM 4.5 mmol/L (3.6-5.0); TOTAL PROTEIN 7.7 g/dL (6.3-8.2); TRIGLYCERIDES 198 mg/dL (<150)
[2020-04-02 10:53] LABS: ERYTHROCYTE SEDIMENTATION RATE 25 mm/hr (0-20)
[2020-04-02 10:59] LABS: DIRECT LDL 91 mg/dL (<100)
[2020-04-02 11:03] LABS: VLDL CHOLESTEROL 39.6 mg/dL (10-31)
== END ==
LOC: CCC 09:29
PROVIDERS: ATTEND Internal Medicine
DX: R53.83 Other fatigue (principal); R41.89 Other symptoms and signs involving cognitive functions and awareness
CPT/HCPCS: 36415; 80053; 80061; 82306; 83036; 83735; 84100; 84443; 85025; 85652

== ENCOUNTER → 2020-08-25 | Outpatient (CLI) | payer OTHER ==
[2020-08-25 10:41] LABS: ABSOLUTE EOSINOPHILS # (AUTO) 0.1 10^3/uL (0.0-0.6); ABSOLUTE LYMPHOCYTES (AUTO) 1.7 10^3/uL (0.5-4.7); ABSOLUTE MONOCYTES (AUTO) 0.2 10^3/uL (0.1-1.4); ABSOLUTE NEUT (AUTO) 2.1 10^3/uL (1.7-8.2); BASOPHILS % (AUTO) 0.8 % (0-2); EOSINOPHILS % (AUTO) 3.1 % (0-6); HEMATOCRIT 37.7 % (36.0-47.0); LYMPHOCYTES % (AUTO) 41.1 % (13-45); MEAN CORPUSCULAR HEMOGLOBIN 30.8 pg (27.0-33.4); MEAN CORPUSCULAR HGB CONC 34.4 g/dL (32.0-36.0); MEAN CORPUSCULAR VOLUME 90 fl (80-97); MONOCYTES % (AUTO) 5.7 % (3-13); PLATELET COUNT 222 10^3/uL (150-450); RED BLOOD COUNT 4.21 10^6/uL (3.72-5.28); RED CELL DISTRIBUTION WIDTH 12.7 % (11.5-14.0); SEGMENTED NEUTROPHILS % (AUTO) 49.3 % (42-78); TOTAL CELLS COUNTED % (AUTO) 100 %; WHITE BLOOD COUNT 4.2 10^3/uL (4.0-10.5)
[2020-08-25 11:29] LABS: ALBUMIN 4.9 g/dL (3.5-5.0); ALKALINE PHOSPHATASE 63 U/L (38-126); ANION GAP 11 (5-19); ASPARTATE AMINO TRANSFERASE 26 U/L (14-36); BILIRUBIN,DIRECT 0.2 mg/dL (0.0-0.4); BLOOD UREA NITROGEN 19 mg/dL (7-20); CALCIUM 10.1 mg/dL (8.4-10.2); CARBON DIOXIDE 26 mmol/L (22-30); CHLORIDE 100 mmol/L (98-107); GLUCOSE 88 mg/dL (75-110); POTASSIUM 4.4 mmol/L (3.6-5.0); TOTAL PROTEIN 8.6 g/dL (6.3-8.2)
[2020-08-25 12:26] LABS: FOLATE > 20.00 ng/mL (>2.76)
== END ==
LOC: CCC 09:57
PROVIDERS: ATTEND Internal Medicine
DX: R53.83 Other fatigue (principal); E53.8 Deficiency of other specified B group vitamins; E55.9 Vitamin D deficiency, unspecified
CPT/HCPCS: 36415; 80053; 82306; 82607; 82746; 83036; 84443; 85025

== ENCOUNTER → 2020-10-21 | Outpatient (CLI) | payer OTHER ==
--- NOTE | 2020-10-21 10:27 | WOMENS IMAGING REPORT ---
EXAM DESCRIPTION: BRENTON STEPHENS 3D BILAT SCREEN IMAGES COMPLETED DATE/TIME: 10/21/2020 9:38 am REASON FOR STUDY: ROUTINE SCREENING MAMMOGRAM Z12.31 Z12.31 ENCNTR SCREEN MAMMOGRAM FOR MALIGNANT N EOPLASM OF [place] COMPARISON: 2019 EXAM PARAMETERS: Views: Standard craniocaudal and mediolateral oblique views of each breast recorded using digital acquisition and breast tomosynthesis. Read with the assistance of CAD. .[facility] - [employer] Version 9.2 LIMITATIONS: None. FINDINGS: No suspicious masses, suspicious calcifications or architectural distortion. No areas of c oncern. IMPRESSION: NEGATIVE MAMMOGRAM. BIRADS 1. BREAST DENSITY: b. There are scattered areas of fibroglandular density. BIRAD: ASSESSMENT: 1 NEGATIVE RECOMMENDATION: ROUTINE SCREENING COMMENT: The patient has been notified of the results by letter per MQSA requirements. Additional no tification policies are in place for contacting patient with suspicious or incomplete findings. Quality ID #[id number]: The [employer] recommends an annual screening mammogram for women aged 40 years or over. This facility utilizes a reminder system to ensure that all patients receive reminder letters, and/or direct phone calls for appointments. This includes reminders for routine scr eening mammograms, diagnostic mammograms, or other Breast Imaging Interventions when appropriate. Th is patient will be placed in the appropriate reminder system. TECHNICAL DOCUMENTATION: FINDING NUMBER: (1) ASSESSMENT: (1) JOB ID: [id number] 2010 [employer]- All Rights Reserved Reading location - IP/workstation name: [email or web address]
== END ==
LOC: WI 09:16
PROVIDERS: ATTEND Internal Medicine
DX: Z12.31 Encounter for screening mammogram for malignant neoplasm of breast (principal)
CPT/HCPCS: 77063